=== PATIENT | female | born 1955 | race Caucasian/White ===

== ENCOUNTER 2020-07-01 10:54 | Outpatient (REF) | payer MEDICARE, MEDICAID, SELFPAY ==
--- NOTE | 2020-07-01 | MM_ITS ---
EXAMINATION: MM SCREENING DIGITAL BREAST TOMOSYNTHESIS, BILATERAL CLINICAL INFORMATION: Screening. Asymptomatic. The lifetime risk of breast cancer based on the Tyrer-Cuzick Model is 4%. COMPARISON: Mammography: 11/22/2018, 11/20/2017, 10/31/2016 TECHNIQUE: Digital breast tomosynthesis is performed in both the craniocaudal and mediolateral oblique views along with computer-aided detection (CAD). Synthesized 2D images are generated from the tomosynthesis. FINDINGS: The breasts are almost entirely fatty (ACR BI-RADS breast composition Category a). Background stromal densities are stable. There are 2 circumscribed nodules mid and posterior outer left breast likely intraparenchymal nodes. There is no interval mass or architectural abnormality or abnormal calcifications. No significant changes. IMPRESSION: No mammographic evidence of malignancy. ASSESSMENT: BI-RADS 2: Benign RECOMMENDATION: Routine annual mammography screening. This patient's information was entered into a reminder system with a target due date for their next mammogram.
== END 2020-07-01 10:55 | disposition home or self-care (01) ==
LOC: HO.MAMMO 10:54
PROVIDERS: PCP Registered Nurse; Referring Provider Internal Medicine; Visit Provider Registered Nurse
DX: Z12.31 Encounter for screening mammogram for malignant neoplasm of breast (principal); Z20.828 Contact with and (suspected) exposure to other viral communicable diseases
CPT/HCPCS: 36415; 77063; 77067; 78014; 87635

== ENCOUNTER 2020-08-13 09:51 | Outpatient (REF) | payer OTHER, MEDICAID, SELFPAY ==
--- NOTE | 2020-08-13 10:08 | XR_ITS ---
EXAMINATION: XR KNEE, BILATERAL XR KNEE, RIGHT CLINICAL INFORMATION: Pain in right knee COMPARISON: 04/23/2019 TECHNIQUE: AP standing view of both knees. Lateral and sunrise views of the right knee. FINDINGS: Right knee: No fracture or subluxation. Mild narrowing of the patellofemoral compartment. Small marginal osteophytes at the patellofemoral and lateral compartments. No joint effusion. The soft tissues are unremarkable. The appearance is similar to prior. Left knee: On this single view there is moderate medial compartment joint space narrowing with marginal osteophytes of the medial and lateral compartments, similar to prior. XR/XR knee RT 2V IMPRESSION: 1. Right knee: Mild patellofemoral compartment narrowing. Small osteophytes at the patellofemoral and lateral compartments. Similar to prior. 2. Left knee: Moderate medial compartment narrowing with medial and lateral compartment osteophytes, similar to prior.
--- NOTE | 2020-08-13 10:08 | XR_ITS ---
EXAMINATION: XR KNEE, BILATERAL XR KNEE, RIGHT CLINICAL INFORMATION: Pain in right knee COMPARISON: 04/23/2019 TECHNIQUE: AP standing view of both knees. Lateral and sunrise views of the right knee. FINDINGS: Right knee: No fracture or subluxation. Mild narrowing of the patellofemoral compartment. Small marginal osteophytes at the patellofemoral and lateral compartments. No joint effusion. The soft tissues are unremarkable. The appearance is similar to prior. Left knee: On this single view there is moderate medial compartment joint space narrowing with marginal osteophytes of the medial and lateral compartments, similar to prior. XR/XR knee standing BI IMPRESSION: 1. Right knee: Mild patellofemoral compartment narrowing. Small osteophytes at the patellofemoral and lateral compartments. Similar to prior. 2. Left knee: Moderate medial compartment narrowing with medial and lateral compartment osteophytes, similar to prior.
== END 2020-08-13 09:52 | disposition home or self-care (01) ==
LOC: HO.HOSX 09:51
PROVIDERS: Visit Provider Orthopaedic Surgery
DX: M17.11 Unilateral primary osteoarthritis, right knee (principal); M17.12 Unilateral primary osteoarthritis, left knee
CPT/HCPCS: 20610; 73560; 73565; 99212; J1040

== ENCOUNTER → 2020-08-31 10:50 | Outpatient (BNVA) | payer MEDICARE, MEDICAID, SELFPAY | PROVIDERS: Visit Provider Orthopaedic Surgery | DX: M25.562 Pain in left knee (principal); M25.561 Pain in right knee; M17.12 Unilateral primary osteoarthritis, left knee; R73.03 Prediabetes | CPT/HCPCS: 20610; 99212; J1040 ==

== ENCOUNTER 2020-09-14 10:25 | Outpatient (REF) | payer MEDICARE, MEDICAID, SELFPAY ==
--- NOTE | 2020-09-14 10:27 | XR_ITS ---
EXAMINATION: X-RAY BILATERAL SHOULDERS CLINICAL INFORMATION: Pain. COMPARISON: X-ray left shoulder 11/05/2019 TECHNIQUE: Bilateral shoulders each 3 views FINDINGS: RIGHT SHOULDER: Mild glenohumeral joint arthritis. Moderate AC joint arthritis. Subcortical cyst/sclerosis in the greater tuberosity. No fracture or dislocation. LEFT SHOULDER: Mild glenohumeral joint arthritis. Moderate AC joint arthritis. No acute fracture or dislocation. Old ossification in the inferior joint space, as well as ossification seen posterior to the glenoid on the axillary view, probable loose bodies. XR/XR shoulder LT min 2V IMPRESSION: RIGHT SHOULDER: Mild right glenohumeral and moderate AC joint arthritis. LEFT SHOULDER: Mild left glenohumeral and moderate AC joint arthritis. Probable loose bodies.
--- NOTE | 2020-09-14 10:27 | XR_ITS ---
EXAMINATION: X-RAY BILATERAL SHOULDERS CLINICAL INFORMATION: Pain. COMPARISON: X-ray left shoulder 11/05/2019 TECHNIQUE: Bilateral shoulders each 3 views FINDINGS: RIGHT SHOULDER: Mild glenohumeral joint arthritis. Moderate AC joint arthritis. Subcortical cyst/sclerosis in the greater tuberosity. No fracture or dislocation. LEFT SHOULDER: Mild glenohumeral joint arthritis. Moderate AC joint arthritis. No acute fracture or dislocation. Old ossification in the inferior joint space, as well as ossification seen posterior to the glenoid on the axillary view, probable loose bodies. XR/XR shoulder RT min 2V IMPRESSION: RIGHT SHOULDER: Mild right glenohumeral and moderate AC joint arthritis. LEFT SHOULDER: Mild left glenohumeral and moderate AC joint arthritis. Probable loose bodies.
== END 2020-09-14 10:26 | disposition home or self-care (01) ==
LOC: HO.HOSX 10:25
PROVIDERS: PCP Registered Nurse; Visit Provider Orthopaedic Surgery
DX: M75.41 Impingement syndrome of right shoulder (principal); M75.42 Impingement syndrome of left shoulder
CPT/HCPCS: 73030; 99212

== ENCOUNTER → 2020-10-06 13:24 | Outpatient (BNVA) | payer MEDICARE, MEDICAID, SELFPAY | PROVIDERS: PCP Registered Nurse; Visit Provider Orthopaedic Surgery | DX: M75.41 Impingement syndrome of right shoulder (principal); M75.42 Impingement syndrome of left shoulder | CPT/HCPCS: 20610; 99212; J1040 ==

== ENCOUNTER → 2020-11-16 13:04 | Outpatient (BNVA) | payer MEDICAID, SELFPAY | PROVIDERS: PCP Nurse Practitioner Family; Visit Provider Physician Assistant ==

== ENCOUNTER 2020-11-30 07:55 | Outpatient (REF) | payer MEDICARE, SELFPAY ==
--- NOTE | ~2020-11-30 | US_ITS ---
EXAMINATION: US ABDOMEN COMPLETE CLINICAL INFORMATION: Epigastric pain. COMPARISON: Previous CT of the abdomen and pelvis most recent August 2014 and MRI of the abdomen from 1999 TECHNIQUE: Real-time imaging of the abdominal viscera. FINDINGS: PANCREAS: The head and body the pancreas are normal. The tail is not well visualized due to bowel gas. ABDOMINAL AORTA: The proximal, mid, and distal segments are normal in caliber. INFERIOR VENA CAVA: Visualized portions are normal. LIVER: Normal. The liver is normal in size. The liver contour is normal. Parenchymal echogenicity is normal. No focal hepatic lesion. There is no intrahepatic biliary duct dilatation seen. GALLBLADDER: Surgically removed.. COMMON BILE DUCT: Normal in caliber measuring 0.9 cm in diameter. RIGHT KIDNEY: There is a peripheral echogenic area in the upper pole of the right kidney. When compared with CT or MRI this may represent a parenchymal junctional defect partial volume averaging with the perinephric fat. No hydronephrosis. No renal calculi . The kidney measures 10.9 cm in maximum dimension. LEFT KIDNEY: There are several echogenic densities suggestive of stones. The largest measures 5 mm in the mid to lower pole. There is a small 1 cm cyst in the lateral lower pole. No hydronephrosis. No renal calculi or focal parenchymal lesions. The kidney measures cm in maximum dimension. SPLEEN: Normal. The spleen measures 9.5 cm in maximum dimension. There is a 4.3 x 3.3 x 3.7 cm simple cyst adjacent to the inferior spleen. This is not seen on prior exams FREE FLUID: None. US/US abdomen complete IMPRESSION: New 4.3 x 3.3 x 3.7 cm cyst inferior to the spleen. This is not seen on prior exams, most recent abdominal pelvic CT August 2014. This could be better evaluated with CT or MRI. Left renal stones. Small left renal cyst. Limited visualization of the tail the pancreas.
[2020-11-30 09:14] LABS: MANUAL DIFF FLAG NO
[2020-11-30 09:18] LABS: Basophils Percent Auto 0.7 % (0-2); Eosinophils Absolute Auto 0.1 X10*3/uL (0.0-0.4); Eosinophils Percent Auto 2.2 % (0-4); Hemoglobin 12.6 g/dl (12.0-16.0); Imm Gran Abs Auto 0.01 X10*3/uL (0.00-0.03); Imm Gran Pct Auto 0.2 % (0.0-0.4); Lymphocytes Absolute Auto 1.5 X10*3/uL (1.2-4.9); Lymphocytes Percent Auto 25.8 % (20-40); Mean Corpuscular HGB Conc 33.2 g/dl (31.0-35.0); Mean Corpuscular Hemoglobin 29.8 pg (27.0-33.0); Mean Corpuscular Volume 89.8 fL (80-98); Mean Platelet Volume 11.5 fL (9.4-12.3); Monocytes Absolute Auto 0.7 X10*3/uL (0.1-1.2); Monocytes Percent Auto 11.5 % (2-11); Neutrophils Absolute Auto 3.5 X10*3/uL (2.0-8.3); Neutrophils Percent Auto 59.6 % (45-73); Platelet Count 151 X10*3/uL (160-400); Red Blood Count 4.23 X10*6/uL (4.20-5.50); Red Cell Distribution Width 15.2 % (11.0-16.0); White Blood Count 5.9 X10*3/uL (4.8-10.8)
[2020-11-30 09:45] LABS: Glucose Urine UA NEG (NEG); Leukocyte Esterase Urine TRACE (NEG); Nitrite Urine NEG (NEG); PH 7.5 (5.0-8.0); Urine Blood NEG (NEG); Urine Ketones NEG (NEG); Urine Protein NEG (NEG-TRACE)
[2020-11-30 09:47] LABS: Appearance Urine HAZY; Color Urine YELLOW
[2020-11-30 09:48] LABS: Alanine Aminotransferase 14 U/L (0-31); Alkaline Phosphatase 95 U/L (39-117); Anion Gap 10 (12-20); Aspartate Amino Transferase 17 U/L (5-31); Bilirubin Total 1.2 mg/dL (0.0-1.0); Blood Urea Nitrogen 11 mg/dL (9-16); Calcium 8.5 mg/dL (8.4-10.2); Carbon Dioxide 29 mmol/L (22-29); Chloride 107 mmol/L (96-108); Estimated Glomerular Filt Rate > 60; Glucose Random 95 mg/dL (60-115); Potassium 4.3 mmol/L (3.3-5.1); Sodium 142 mmol/L (135-145); Total Protein 6.5 g/dL (6.5-8.0)
[2020-11-30 09:53] LABS: Bacteria Urine 1+ /LPF; RBC Urine 0 /HPF (0); Squamous Epithelial Cell Urine 2+ /LPF
[2020-11-30 10:17] LABS: Thyroid Stimulating Hormone 0.76 uIU/mL (0.32-4.0)
== END 2020-11-30 07:56 | disposition home or self-care (01) ==
LOC: HO.US 07:55
PROVIDERS: PCP Registered Nurse; Visit Provider Physician Assistant
DX: R10.13 Epigastric pain (principal)
CPT/HCPCS: 36415; 76700; 80053; 81001; 84443; 85025

== ENCOUNTER 2020-12-30 07:52 | Emergency (ER) | payer MEDICARE, SELFPAY ==
--- NOTE | ~2020-12-30 | XR_ITS ---
EXAMINATION: XR ANKLE, RIGHT CLINICAL INFORMATION: Pain COMPARISON: None TECHNIQUE: AP, lateral, and mortise views of the right ankle. FINDINGS: No fracture or dislocation. The ankle mortise is congruent. Mild degenerative changes along the ankle mortise, particularly at the lateral aspect with osteophyte formation. Mild degenerative changes of the midfoot with osteophyte formation dorsally. Mild circumferential soft tissue swelling. No definite ankle joint effusion. Prominent heel spurs. XR/XR ankle RT min 3V IMPRESSION: Mild degenerative changes along the ankle mortise, greatest laterally. Heel spurs.
[2020-12-30 08:57] VITALS: BP 113/55; PULSE 64; RESP 16; TEMP 36.6; O2SAT 98; BMI 29.4
--- NOTE | 2020-12-30 09:37 | ED_ITS ---
HPI - Extremity Injury (Lower) General Chief Complaint: Extremity Injury, Lower Stated Complaint: ankle pain Time Seen by Provider: 12/30/20 09:37 History of Present Illness HPI Narrative: Patient with history of right ankle arthritis complains of pain being worse over past several days without any new injury no fever no chills no redness to the skin no skin rash Related Data Home Medications Medication Instructions Recorded Confirmed calcium carbonate 200 mg calcium 200 mg PO BID 08/13/20 11/16/20 (500 mg) chewable tablet cholecalciferol (vitamin D3) 10 10 mcg PO .COMPLEX 08/13/20 11/16/20 mcg (400 unit) capsule naproxen sodium 220 mg capsule 220 mg PO Q8H 08/13/20 11/16/20 Previous Rx's Medication Instructions Recorded famotidine 40 mg tablet 40 mg PO DAILY #30 tab 11/16/20 lidocaine 1 patch TOPICAL DAILY #15 ea 12/30/20 Allergies Allergy/AdvReac Type Severity Reaction Status Date / Time erythromycin base Allergy Intermediate GI DISTRESS Verified 11/16/20 13:05 [Erythromycin Base] Penicillins Allergy Intermediate RASH Verified 11/16/20 13:05 Review of Systems Review of Systems: Positive for right ankle pain negatives are no fever no chills no numbness no weakness no dizziness no other joint pains no skin rash PMFSH Past Medical History Source: nursing notes reviewed Medical History (Updated 12/31/20 @ 00:01 by Jennifer Edward) Acid reflux Epigastric pain Osteoarthritis of left knee Uterine polyp Surgical History History of cholecystectomy Hx of tubal ligation Family History Family History (Updated 11/16/20 @ 13:08 by ZHANG Burnett) Mother Diabetes Sister Diabetes Brother Diabetes Social History Social History (Updated 11/16/20 @ 13:08 by ZHANG Burnett) Household Members: Spouse Alcohol intake: current Alcohol intake frequency: does not drink Smoking Status: Never smoker Smoked in Last 30 Days: No Use of substances other than those prescribed or required for medical reasons: No Advance Directives: Yes Advance Directives Information Provided: No Advance Directives on File: No Current occupational status: unemployed Current occupation: Right Handed Physical Exam Vital Signs: Vital Signs: Last Vital Signs Temp 97.9 F 12/30/20 08:57 Pulse 64 12/30/20 08:57 Resp 16 12/30/20 08:57 BP 113/55 L 12/30/20 08:57 Pulse Ox 98 12/30/20 08:57 Body Mass Index 29.4 General appearance is no acute distress, comp and cooperative and O x3 Head is normocephalic atraumatic Neck is supple Respiratory no distress Extremities there is some tenderness around the right ankle both medial and lateral, skin is normal color not red and warm there is full range of motion, there is a mild limp with weight-bearing and neurovascular intact distal Skin no rash Neuro no focal motor or sensory deficits Course Course Course Narrative: X-ray showed some evidence of arthritis in the right ankle, no signs of any infection no signs of a septic joint and patient is discharged to follow-up with orthopedist Discharge Plan Discharge Clinical Impression: Arthralgia of ankle, right Patient Disposition: Home, Self-Care Additional Instructions: Follow with orthopedist and plaster applicator for further evaluation Return any concerns Prescriptions: New lidocaine 5 % adhesive patch,medicated 1 patch topical DAILY Qty: 15 RF: 0 No Action famotidine 40 mg tablet 40 mg PO DAILY Qty: 30 RF: 5 naproxen sodium [Aleve] 220 mg capsule 220 mg PO Q8H RF: 0 calcium carbonate [Tums] 200 mg calcium (500 mg) tablet,chewable 200 mg PO BID RF: 0 cholecalciferol (vitamin D3) 10 mcg (400 unit) capsule 10 mcg PO .COMPLEX RF: 0 Referrals: Cristóbal Meneses MD [Physician] - 2 days (Right ankle arthritis pain) Feliciano Jiménez [Physician] - 2 days (Right ankle arthritis pain) Interventions: ED Discharge Assessment Last Done: 12/30/20 10:57 Discharge Date/Time: 12/30/20 10:57
== END 2020-12-30 10:57 | disposition home or self-care (01) ==
PROVIDERS: Emergency Provider Emergency Medicine Emergency Medical Services; PCP Registered Nurse
DX: M19.071 Primary osteoarthritis, right ankle and foot (principal); M25.571 Pain in right ankle and joints of right foot
CPT/HCPCS: 73610; 99283

== ENCOUNTER 2021-07-11 15:18 | Emergency (ER) | payer MEDICARE, SELFPAY ==
--- NOTE | 2021-07-11 15:32 | ECG_ITS ---
Test Reason : PALPITATIONS Blood Pressure : / mmHG Vent. Rate : 067 BPM Atrial Rate : 067 BPM P-R Int : 156 ms QRS Dur : 078 ms QT Int : 406 ms P-R-T Axes : 056 019 034 degrees QTc Int : 429 ms Normal sinus rhythm RSR' or QR pattern in V1 suggests right ventricular conduction delay Nonspecific T wave abnormality Borderline ECG When compared with ECG of 26-JAN-2016 07:55, Nonspecific T wave abnormality is new Referred By: Genaro Gonzalez Electronically Signed By:TIAGO RAE MD
[2021-07-11 15:46] VITALS: BP 120/33; PULSE 65; RESP 16; TEMP 36.8; O2SAT 98
--- NOTE | 2021-07-11 19:02 | PC.NURSE ---
pt wants to leave, pt states her palp are not as bad as in the past. pt states she has palp all the time and will be seen tomorrow. pt encouraged to stay and she still wanted to leave. skin pink warm and dry, talking in full sentences, steady gait.
== END 2021-07-11 19:07 | disposition left against medical advice (07) ==
PROVIDERS: Emergency Provider Emergency Medicine
DX: R00.2 Palpitations (principal)
CPT/HCPCS: 93005; 99282

== ENCOUNTER 2021-09-29 19:02 | Outpatient (REF) | payer MEDICARE, SELFPAY ==
[2021-09-29 20:04] LABS: Influenza A PCR NEGATIVE (Negative); Influenza B PCR NEGATIVE (Negative); Resp Syncy Virus RNA Qual PCR NEGATIVE (Negative); SARS COV2 PCR INHOUSE POSITIVE (Negative)
== END 2021-09-29 19:03 | disposition home or self-care (01) ==
LOC: HO.LNP 19:02
PROVIDERS: Visit Provider Physician Assistant Medical
DX: Z20.822 Contact with and (suspected) exposure to COVID-19 (principal); J06.9 Acute upper respiratory infection, unspecified
CPT/HCPCS: 0241U

== ENCOUNTER 2021-10-19 10:50 | Outpatient (REF) | payer MEDICARE, SELFPAY ==
[2021-10-19 11:25] LABS: MANUAL DIFF FLAG NO
[2021-10-19 11:35] LABS: Basophils Percent Auto 0.4 % (0-2); Eosinophils Absolute Auto 0.1 X10*3/uL (0.0-0.4); Eosinophils Percent Auto 1.2 % (0-4); Hematocrit 33.2 % (37.0-47.0); Hemoglobin 10.7 g/dl (12.0-16.0); Imm Gran Abs Auto 0.01 X10*3/uL (0.00-0.03); Imm Gran Pct Auto 0.1 % (0.0-0.4); Lymphocytes Absolute Auto 1.7 X10*3/uL (1.2-4.9); Mean Corpuscular HGB Conc 32.2 g/dl (31.0-35.0); Mean Corpuscular Hemoglobin 29.5 pg (27.0-33.0); Mean Corpuscular Volume 91.5 fL (80.0-98.0); Mean Platelet Volume 11.8 fL (9.4-12.3); Monocytes Absolute Auto 0.9 X10*3/uL (0.1-1.2); Monocytes Percent Auto 12.3 % (2-11); Neutrophils Absolute Auto 4.7 x10*3/uL (2.0-8.3); Platelet Count 193 X10*3/uL (160-400); Red Blood Count 3.63 X10*6/uL (4.20-5.50); Red Cell Distribution Width 14.7 % (11.0-16.0); White Blood Count 7.4 X10*3/uL (4.8-10.8)
[2021-10-19 12:00] LABS: Alanine Aminotransferase 26 U/L (0-31); Albumin Level 4.1 g/dL (3.5-5.0); Alkaline Phosphatase 204 U/L (39-117); Aspartate Amino Transferase 31 U/L (5-31); Bilirubin Direct 0.7 mg/dL (0.0-0.5); Bilirubin Total 1.6 mg/dL (0.0-1.0); Lipase 19 U/L (8-78); Total Protein 7.6 g/dL (6.5-8.0)
[2021-10-19 12:23] LABS: Thyroid Stimulating Hormone 0.93 uIU/mL (0.32-4.0)
== END 2021-10-19 10:51 | disposition home or self-care (01) ==
LOC: HO.LAB 10:50
PROVIDERS: PCP Registered Nurse; Visit Provider Internal Medicine Gastroenterology
DX: R09.89 Other specified symptoms and signs involving the circulatory and respiratory systems (principal); R52 Pain, unspecified
CPT/HCPCS: 36415; 80076; 83690; 84443; 85025

== ENCOUNTER 2021-11-01 11:02 | Outpatient (REF) | payer MEDICARE, SELFPAY ==
--- NOTE | ~2021-11-01 | MM_ITS ---
EXAMINATION: MM SCREENING DIGITAL BREAST TOMOSYNTHESIS, BILATERAL CLINICAL INFORMATION: Screening. Asymptomatic. The lifetime risk of breast cancer based on the Tyrer-Cuzick Model is 3%. COMPARISON: Mammography: 07/01/2020, 11/22/2018, 11/20/2017 TECHNIQUE: Digital breast tomosynthesis is performed in both the craniocaudal and mediolateral oblique views along with computer-aided detection (CAD). Synthesized 2D images are generated from the tomosynthesis. Additional left MLO view is provided. FINDINGS: The breasts are almost entirely fatty (ACR BI-RADS breast composition Category a). There are no significant masses, abnormal calcifications, or other abnormalities. Background stromal and fibroglandular densities are similar to prior studies. There are 2 intramammary node again suggested posterior upper outer left breast. Tightly grouped round/reason calcifications again seen posterior central 1:00 left breast similar to prior exam. The axilla and skin contours are unremarkable. MM/MM tomosynthesis screening BI IMPRESSION: There are no significant changes from prior study. ASSESSMENT: BI-RADS 2: Benign RECOMMENDATION: Routine annual mammography screening. This patient's information was entered into a reminder system with a target due date for their next mammogram.
== END 2021-11-01 11:03 | disposition home or self-care (01) ==
LOC: HO.MAMMO 11:02
PROVIDERS: Visit Provider Registered Nurse
DX: Z12.31 Encounter for screening mammogram for malignant neoplasm of breast (principal)
CPT/HCPCS: 77063; 77067

== ENCOUNTER 2021-11-01 11:53 | Outpatient (REF) | payer MEDICARE, SELFPAY ==
[2021-11-01 13:52] LABS: OBS Int Ctl Valid YES; OBS1 NEGATIVE (NEGATIVE); OBS2 NEGATIVE (NEGATIVE); OBS3 NEGATIVE (NEGATIVE)
[2021-11-01 14:11] LABS: Alanine Aminotransferase 22 U/L (0-31); Albumin Level 3.8 g/dL (3.5-5.0); Alkaline Phosphatase 202 U/L (39-117); Aspartate Amino Transferase 29 U/L (5-31); Bilirubin Direct 0.6 mg/dL (0.0-0.5); Bilirubin Total 1.5 mg/dL (0.0-1.0); Iron 43 mcg/dL (30-160); Percent Iron Saturation 18 % (15-50); Total Iron Binding Capacity 242 mcg/dL (228-428); Total Protein 6.9 g/dL (6.5-8.0); Unsaturated Iron Binding 199 ug/dL
[2021-11-01 14:32] LABS: Ferritin 602 ng/mL (10-250)
[2021-11-01 14:36] LABS: Folate 8.2 ng/mL (> or = 4.0); Vitamin B12 1408 pg/mL (200-900)
== END 2021-11-01 11:54 | disposition home or self-care (01) ==
LOC: HO.LAB 11:53
PROVIDERS: PCP Registered Nurse; Visit Provider Internal Medicine Gastroenterology
DX: D64.9 Anemia, unspecified (principal); R79.89 Other specified abnormal findings of blood chemistry
CPT/HCPCS: 36415; 80076; 82270; 82607; 82728; 82746; 83540

== ENCOUNTER 2021-11-18 10:08 | Outpatient (REF) | payer MEDICARE, SELFPAY ==
--- NOTE | ~2021-11-18 | FL_ITS ---
EXAMINATION: XR FLUOROSCOPY UPPER GI WITH AIR CLINICAL INFORMATION: Epigastric pain COMPARISON: July 18, 2017 TECHNIQUE: Air-contrast upper GI examination. FINDINGS: There is normal apposition of the vocal cords while saying he. There is normal elevation of the soft palate while saying candy. Patient swallowed thin and thick barium without difficulty. Half-inch diameter barium tablet passed without difficulty. There is no evidence of nasopharyngeal reflux or tracheal aspiration. The stomach demonstrated normal distensibility without persistent stricture. There is normal esophageal motility. Mucosal pattern appears unremarkable. There is mild gastroesophageal reflux spontaneously within the distal half of the esophagus which cleared rapidly. There is a small hiatal hernia present. Within the distal antrum of the stomach there is some diminished distensibility with prominent folds consistent with gastritis. There was no delay in gastric emptying. The duodenal bulb and sweep appeared unremarkable. FLUOROSCOPY TIME: 2.8 minutes DOSE AREA PRODUCT: 16.346 Gy-cm2 (thomas-centimeter squared) FL/FL upper GI w air IMPRESSION: Small hiatal hernia with gastroesophageal reflux which clears rapidly within the distal half of the esophagus.. Findings consistent with antral gastritis.
== END 2021-11-18 10:09 | disposition home or self-care (01) ==
LOC: HO.XRAY 10:08
PROVIDERS: PCP Registered Nurse; Visit Provider Internal Medicine Gastroenterology
DX: R10.13 Epigastric pain (principal)
CPT/HCPCS: 74246

== ENCOUNTER 2021-11-23 08:50 | Outpatient (REF) | payer MEDICARE, SELFPAY ==
--- NOTE | ~2021-11-23 | US_ITS ---
EXAMINATION: US ABDOMEN COMPLETE CLINICAL INFORMATION: Anemia. Elevated LFTs. COMPARISON: Ultrasound abdomen complete 11/30/2020. CT abdomen and pelvis 09/04/2014. TECHNIQUE: Real-time imaging of the abdominal viscera. FINDINGS: PANCREAS: The pancreas is normal-appearing. There is a lymph node seen superior to the pancreas that measures 1.1 x 0.7 x 1.4 cm. ABDOMINAL AORTA: The proximal, mid, and distal segments are normal in caliber. INFERIOR VENA CAVA: Visualized portions are normal. LIVER: The liver is normal in size and contour. Liver echotexture appears slightly heterogeneous. There is question of a focal liver lesion largest measuring 3 cm in the right lobe. Intrahepatic bile ducts appear prominent and echogenic. GALLBLADDER: Surgically absent. COMMON BILE DUCT: Normal in caliber measuring 1.0 cm in diameter. RIGHT KIDNEY: There is a 7 x 9 mm echogenic area in the upper to midpole questionable for a junctional parenchymal defect versus angiomyolipoma. No hydronephrosis. No renal calculi or focal parenchymal lesions. The kidney measures 10.8 cm in maximum dimension. LEFT KIDNEY: There is a 2 cm slightly complex cyst with thin septation. No hydronephrosis or renal calculi. The kidney measures 11.1 cm in maximum dimension. SPLEEN: Normal. The spleen measures 10.0 cm in maximum dimension. There is a new large cyst medial to the spleen and superior to the left kidney that measures 5.5 x 5.4 x 8.3 cm. This is new from previous CT and ultrasound in origin is uncertain. FREE FLUID: None. US/US abdomen complete IMPRESSION: Heterogeneous liver echotexture with question new focal liver lesions. The intrahepatic bile ducts also appear prominent. New 5 x 5 x 8 cm cyst in the left upper quadrant adjacent to the spleen and left kidney.. Pancreatic lymph node. Follow-up CT scan recommended. Question junctional parenchymal defect versus angiomyolipoma in the right kidney. 2 cm slightly complex left renal cyst. Findings will be communicated by the [facility] [employer].
== END 2021-11-23 08:51 | disposition home or self-care (01) ==
LOC: HO.US 08:50
PROVIDERS: PCP Registered Nurse; Visit Provider Internal Medicine Gastroenterology
DX: D64.9 Anemia, unspecified (principal); R79.89 Other specified abnormal findings of blood chemistry
CPT/HCPCS: 76700

== ENCOUNTER 2021-11-25 14:09 | Emergency (ER) | payer MEDICARE, SELFPAY ==
--- NOTE | ~2021-11-25 | XR_ITS ---
EXAMINATION: XR CHEST CLINICAL INFORMATION: Rib pain COMPARISON: Previous chest x-ray December 2013 TECHNIQUE: 2 views of the chest were obtained. FINDINGS: The cardiac and mediastinal contours are normal. The lungs are clear. There is no pleural effusion or pneumothorax. There is curvature of the thoracic spine and degenerative change. No rib fracture is appreciated. XR/XR chest 2V IMPRESSION: No evidence for acute disease in the chest.
[2021-11-25 14:25] VITALS: BP 116/30; PULSE 72; RESP 18; TEMP 36.7; O2SAT 96; BMI 26.2
--- NOTE | 2021-11-25 14:48 | ED.GENADULT ---
HPI - General Adult General Chief complaint: General Medical Stated complaint: r rib pain Time Seen by Provider: 11/25/21 14:48 Source: patient Mode of arrival: ambulatory Limitations: no limitations History of Present Illness HPI narrative: 66 y/o female presents to the ER with right sided rib pain that started on 11/23 when she was having a RUQ abdominal U/S done. She reports pain when the probe went underneath the ribcage. When at home after the procedure patient reports ongoing pain in the area, worse with movement and palpation. She reports waking up at 03:00 today with worsening pain in her right lower ribs. She reports the pain is worse she takes a deep breath and touches the area. She denies any history of falls or trauma. She is not on anticoagulation. She denies any nausea, vomiting, diarrhea, fever, chills. MD complaint: Right lower rib pain Onset (ago): day(s) (2) Location: chest and abdomen Radiation: non-radiation Severity: moderate Severity scale (1-10): 7 Quality: sharp Pain Consistency: intermittent Relieving factors: immobilization Exacerbating factors: movement Associated symptoms: denies other symptoms Treatments prior to arrival: none Related Data Home Medications Medication Instructions Recorded Confirmed calcium carbonate 200 mg calcium 200 mg PO BID 08/13/20 11/16/20 (500 mg) chewable tablet (Tums) cholecalciferol (vitamin D3) 10 10 mcg PO .COMPLEX 08/13/20 11/16/20 mcg (400 unit) capsule naproxen sodium 220 mg capsule 220 mg PO Q8H 08/13/20 11/16/20 (Aleve) Previous Rx's Medication Instructions Recorded famotidine 40 mg tablet 40 mg PO DAILY #30 tab 11/16/20 lidocaine 5 % topical patch 1 patch TOPICAL DAILY #15 ea 12/30/20 lidocaine 5 % topical patch 1 patch TOPICAL DAILY #15 ea 11/25/21 Allergies Allergy/AdvReac Type Severity Reaction Status Date / Time erythromycin base Allergy Intermediate GI DISTRESS Verified 09/29/21 15:51 [Erythromycin Base] Penicillins Allergy Intermediate RASH Verified 09/29/21 15:51 Review of Systems Review of Systems: Constitutional: No Fever, No Chills ENT/Mouth: No sore throat, No Rhinorrhea, No Swallowing Difficulty Cardiovascular: + Chest Pain (right lower rib), No SOB Respiratory: No Cough, No Sputum Gastrointestinal: No Nausea, No Vomiting, No Diarrhea, + abdominal Pain (RUQ), No Hematochezia, No Melena Genitourinary: No Dysuria, No Urinary Frequency, No Hematuria Musculoskeletal: No joint pain, + Myalgias Skin: No Skin Lesions, No rash Neuro: No Weakness, No Numbness Psych: + Anxiety/Panic Heme/Lymph: No Bruising, No Lymphadenopathy PMFSH Past Medical History Medical History (Updated 11/25/21 @ 15:06 by TIM Keating) Acid reflux Epigastric pain Osteoarthritis of left knee Uterine polyp Surgical History History of cholecystectomy Hx of tubal ligation Family History Family History (Updated 11/16/20 @ 13:08 by ZHANG Burnett) Mother Diabetes Sister Diabetes Brother Diabetes Social History Social History (Updated 11/16/20 @ 13:08 by ZHANG Burnett) Household Members: Spouse Alcohol intake: current Alcohol intake frequency: does not drink Patient Tobacco Use Status: Never used Tobacco Advance Directives: No Advance Directives Information Provided: No Current occupational status: unemployed Current occupation: Right Handed Physical Exam ED Vital Signs: Vital Signs - 24 hr 11/25/21 14:25 Temperature 98.1 F Pulse Rate 72 Respiratory Rate 18 Blood Pressure 116/30 L Pulse Oximetry 96 BMI result Body Mass Index 26.2 Appearance: Alert. Oriented X3. Pale. No acute distress. HEENT: normal external inspection Neck: Normal inspection. Neck supple. CVS: Normal heart rate and rhythm. Pulses normal. Respiratory: No respiratory distress. Breath sounds normal. Right anterior lower rib tenderness with mild swelling in the area. No ecchymosis Abdomen: Soft with mild RUQ tenderness adjacent to lower ribs. +BS x4 Skin: Skin warm and dry. Normal skin color. Normal skin turgor. No rashes. Extremities: normal inspection x4 Neuro: Oriented X 3. Grossly normal, nonfocal Course Course Course Narrative: 58-year-old female presents to the ER for evaluation of right lower rib pain that started 2 days ago when she was having an abdominal ultrasound performed. She reports the pain has been intermittent since then before constant since 03:00 this morning. It is worse with palpation and movement. She also reports worsening pain when taking a deep breath. No trauma. No GI symptoms. X-rays of the chest did not show any abnormalities of the ribs. It is possible that she has a rib contusion due to the technique of the ultrasound being performed. Her pain started the exact time the procedure was being done. Management is supportive care and outpatient follow-up. She reported relief with Aleve and states the only medication that she can tolerate for pain. She is also interested in topical treatments, will DC with Rx for Lidoderm patches. Stable for DC home. Instructed to return to the ER if symptoms worsen. Discharge Plan Discharge Clinical Impression: Contusion of rib on right side Patient Disposition: Home, Self-Care Instructions: Rib Contusion (ED) Additional Instructions: Your x-ray today was normal. Your pain is most likely due to a bruised rib also known as a rib contusion. Recommend continuing Aleve as needed. Use the prescribed pain patches as needed. No strenuous activity or heavy lifting. Follow up with your doctor next week. If you develop new or worsening symptoms call 911 or come back to the ER for further evaluation. Prescriptions: New lidocaine 5 % adhesive patch,medicated 1 patch topical DAILY Qty: 15 0RF Rx Instructions: leave on most painful area for up to 12 hrs No Action lidocaine 5 % adhesive patch,medicated 1 patch topical DAILY Qty: 15 0RF Rx Instructions: leave on most painful area for up to 12 hrs famotidine 40 mg tablet 40 mg PO DAILY Qty: 30 5RF naproxen sodium [Aleve] 220 mg capsule 220 mg PO Q8H 0RF calcium carbonate [Tums] 200 mg calcium (500 mg) tablet,chewable 200 mg PO BID 0RF cholecalciferol (vitamin D3) 10 mcg (400 unit) capsule 10 mcg PO .COMPLEX 0RF Rx Instructions: 10 mcg PO WEEKLY;
[2021-11-25] MEDS: Lidocaine 4 % Patch ADH..PATCH 1 PATCH TRANSDERMA (15:11)
[2021-11-25] MEDS: Ketorolac Tromethamine 30 MG/ML VIAL IM (15:12)
== END 2021-11-25 15:19 | disposition home or self-care (01) ==
LOC: HO.ED 15:06
PROVIDERS: Emergency Provider Emergency Medicine; PCP Registered Nurse
DX: S20.211A Contusion of right front wall of thorax, initial encounter (principal); R07.81 Pleurodynia; X58.XXXA Exposure to other specified factors, initial encounter; Y93.9 Activity, unspecified; Y92.9 Unspecified place or not applicable; Y99.9 Unspecified external cause status; Z79.899 Other long term (current) drug therapy
CPT/HCPCS: 71046; 96372; 99283; 99284; J1885

== ENCOUNTER 2021-11-29 11:25 | Outpatient (REF) | payer MEDICARE, SELFPAY ==
[2021-11-29 13:14] LABS: Alanine Aminotransferase 14 U/L (0-31); Albumin Level 3.6 g/dL (3.5-5.0); Alkaline Phosphatase 198 U/L (39-117); Aspartate Amino Transferase 26 U/L (5-31); Bilirubin Direct 0.6 mg/dL (0.0-0.5); Bilirubin Total 1.4 mg/dL (0.0-1.0); Blood Urea Nitrogen 11 mg/dL (9-16); Estimated Glomerular Filt Rate > 60; Gamma Glutamyl Transpeptidase 134 U/L (7-33); Total Protein 6.7 g/dL (6.5-8.0)
[2021-11-30 03:57] LABS: HBc Num1 0.11 S/CO (0.00-0.79); Hepatitis A Antibody IgM 0.23 Index (0-0.79); Hepatitis B Core Antibody Nonreactive (Nonreactive); ~HepC Num1 0.12 S/CO (0.00-0.79); ~Hepatitis A Antibody IgM Nonreactive (Nonreactive); ~Hepatitis B Surface Antibody REACTIVE (Nonreactive); ~Hepatitis C Antibody Nonreactive (Nonreactive)
[2021-11-30 04:10] LABS: HBsAGNum1 0.21 S/CO (0.00-0.99); Hepatitis B Surface Antigen Negative (Negative)
[2021-11-30 19:47] LABS: Alpha 1 Anti-trypsin 283 mg/dL (83-199); Ceruloplasmin 39 mg/dL (18-53)
[2021-11-30 23:12] LABS: Anti Nuclear Antibody Screen POSITIVE (NEGATIVE)
[2021-12-02 00:17] LABS: Smooth Muscle Antibody <20 U (<20)
[2021-12-03 14:56] LABS: Mitochondrial Antibodies POSITIVE (NEGATIVE)
== END 2021-11-29 11:26 | disposition home or self-care (01) ==
LOC: HO.LAB 11:25
PROVIDERS: PCP Registered Nurse; Visit Provider Internal Medicine Gastroenterology
DX: R10.13 Epigastric pain (principal); R79.89 Other specified abnormal findings of blood chemistry; R93.5 Abnormal findings on diagnostic imaging of other abdominal regions, including retroperitoneum
CPT/HCPCS: 36415; 80076; 82103; 82390; 82565; 82977; 84520; 86015; 86038; 86039; 86255; 86256; 86704; 86706; 86709; 86803; 87340

== ENCOUNTER 2021-12-12 09:57 | Outpatient (REF) | payer MEDICARE, SELFPAY ==
--- NOTE | ~2021-12-12 | CT_ITS ---
EXAMINATION: CT ABDOMEN AND PELVIS WITH CONTRAST CLINICAL INFORMATION: Epigastric pain. COMPARISON: Previous abdominal ultrasound November 2021 TECHNIQUE: Multidetector volumetric images were obtained from the superior aspect of the liver through the pubic symphysis following administration 85 mL of Omnipaque 350 intravenous contrast. Sagittal and coronal reformatted images were obtained on the technologist's workstation. Oral contrast: Yes This CT examination was performed using dose optimization techniques as appropriate, variously including the following: *Automated exposure control *Adjustment of mA and/or kV according to patient size (this includes techniques or standardized protocols for targeted exams where dose is matched to indication/reason for exam; i.e. extremities or head) *Use of iterative reconstruction technique DLP: 522 mGy-cm FINDINGS: LUNG BASES: The visualized lung bases are unremarkable. LIVER, GALLBLADDER, AND BILIARY TREE: There are innumerable low-attenuation liver lesions suggestive of metastatic disease. Largest lesion is in the anterior segment of the right lobe and medial segment of the left lobe. Is uncertain whether this represents 1 lesion or conglomerate lesions. This measures 6 x 8.5 cm in transverse and AP dimension. Some lesions appear cystic. Liver slightly enlarged. The liver contour and attenuation is normal. There is no biliary duct dilatation. The gallbladder is not seen and has presumably been removed. PANCREAS: There is a low-attenuation lesion in the tail of the pancreas that measures 3.5 x 5.3 cm and is concerning for neoplasm. Superior to this is a more appearing lesion extending to the splenic hilum and under the left hemidiaphragm measuring 6 cm. This likely corresponds to findings seen on ultrasound. SPLEEN: Unremarkable. ADRENAL GLANDS: Unremarkable. KIDNEYS AND URETERS: There is a 1.5 x 2.5 cm cyst in the lower pole of the left kidney. The kidneys are otherwise unremarkable. No imaging follow-up is needed. BLADDER: Not optimally distended. GASTROINTESTINAL TRACT: The small and large bowel are unremarkable. The appendix is is not seen. The stomach is unremarkable. ABDOMINAL WALL: No significant hernia is appreciated. LYMPH NODES: There are small periportal and peripancreatic lymph nodes. No ascites. 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 There are varices. PELVIC VISCERA: Unremarkable. OSSEOUS STRUCTURES: There are degenerative changes of the spine and hip joints. CT/CT abdomen pelvis w con IMPRESSION: 3.5 x 5.3 cm low-attenuation lesion in the tail of the pancreas and adjacent more superior 6 cm cystic lesion. Innumerable low-attenuation liver lesions suggestive of metastatic disease. Constellation of findings is most suggestive of a pancreatic neoplasm metastatic to the liver. Liver lesions would be amenable to biopsy. Occluded splenic vein. Small peripancreatic and periportal lymph nodes. Small left renal cyst. Fleischner guidelines were followed. Findings will be communicated by the [place] work flow director of product management.
[2021-12-12] MEDS: iohexoL 350 MG/ML 100 ML INFUS..BTL 85 ML IV (10:30)
== END 2021-12-12 09:58 | disposition home or self-care (01) ==
LOC: HO.CT 09:57
PROVIDERS: PCP Registered Nurse; Visit Provider Internal Medicine Gastroenterology
DX: R10.13 Epigastric pain (principal); N28.1 Cyst of kidney, acquired
CPT/HCPCS: 74177; Q9967

== ENCOUNTER 2021-12-13 09:53 | Outpatient (REF) | payer MEDICARE, SELFPAY ==
[2021-12-13 10:42] LABS: Hematocrit 25.7 % (37.0-47.0); Mean Corpuscular HGB Conc 31.1 g/dl (31.0-35.0); Mean Corpuscular Hemoglobin 29.1 pg (27.0-33.0); Mean Corpuscular Volume 93.5 fL (80.0-98.0); Mean Platelet Volume 12.2 fL (9.4-12.3); Platelet Count 248 X10*3/uL (160-400); Red Blood Count 2.75 X10*6/uL (4.20-5.50); Red Cell Distribution Width 15.9 % (11.0-16.0); White Blood Count 9.9 X10*3/uL (4.8-10.8)
[2021-12-13 10:50] LABS: Partial Thromboplastin Time 32.3 SEC (24.1-38.0)
[2021-12-13 11:23] LABS: Alanine Aminotransferase 20 U/L (0-31); Albumin Level 3.8 g/dL (3.5-5.0); Alkaline Phosphatase 217 U/L (39-117); Aspartate Amino Transferase 29 U/L (5-31); Bilirubin Direct 0.6 mg/dL (0.0-0.5); Bilirubin Total 1.5 mg/dL (0.0-1.0); Lipase 33 U/L (8-78); Total Protein 7.2 g/dL (6.5-8.0)
[2021-12-13 15:44] LABS: INTERNATIONAL NORM RATIO 1.2 (0.9-1.1); Prothrombin Time 14.1 SEC (9.9-13.0)
== END 2021-12-13 09:54 | disposition home or self-care (01) ==
LOC: HO.LAB 09:53
PROVIDERS: PCP Registered Nurse; Visit Provider Internal Medicine Gastroenterology
DX: R93.2 Abnormal findings on diagnostic imaging of liver and biliary tract (principal)
CPT/HCPCS: 36415; 80076; 83690; 85027; 85610; 85730; 86301

== ENCOUNTER 2021-12-28 17:11 | Inpatient (IN) | payer MEDICARE, SELFPAY ==
--- NOTE | ~2021-12-28 | US_ITS ---
EXAMINATION: ULTRASOUND-GUIDED LIVER BIOPSY CLINICAL INFORMATION: Liver lesions. Pancreatic mass. COMPARISON: Previous CT of the abdomen and pelvis most recent 12/28/2021 TECHNIQUE: Procedure and risks and benefits including bleeding and infection were discussed with the patient and informed consent was obtained. Patient was positioned in the slight left decubitus position. Right upper quadrant was prepped and draped in the usual sterile fashion. The skin and soft tissues were anesthetized with 1% lidocaine plain. Using ultrasound guidance and a coaxial system, access to the heterogeneous mass in the right lobe was obtained. 4 20-gauge specimens were obtained. There is no complication. The patient received Versed 1 mg and fentanyl 50 mcg intravenously during the procedure. Total sedation time was 12 minutes. FINDINGS: There is a 10 cm heterogeneous lesion in the right lobe of the liver that was targeted for biopsy. US/US biopsy liver IMPRESSION: Ultrasound-guided liver biopsy
--- NOTE | ~2021-12-28 | CT_ITS ---
EXAMINATION: CT ABDOMEN AND PELVIS WITH CONTRAST CLINICAL INFORMATION: Metastatic cancer. COMPARISON: CT abdomen and pelvis 12/12/2021. TECHNIQUE: Multidetector volumetric images were obtained from the superior aspect of the liver through the pubic symphysis following administration 85 mL of Omnipaque 350 intravenous contrast. Sagittal and coronal reformatted images were obtained on the technologist's workstation. Oral contrast: No This CT examination was performed using dose optimization techniques as appropriate, variously including the following: *Automated exposure control *Adjustment of mA and/or kV according to patient size (this includes techniques or standardized protocols for targeted exams where dose is matched to indication/reason for exam; i.e. extremities or head) *Use of iterative reconstruction technique DLP: 717 mGy-cm FINDINGS: LUNG BASES: The lung bases are clear. The heart size is normal. LIVER, GALLBLADDER, AND BILIARY TREE: The liver is borderline enlarged in size, normal shape, and attenuation. There are multiple low-attenuation liver lesions in the right and left hepatic lobe suggestive of metastatic disease. No intrahepatic ductal dilatation seen. The gallbladder is not definitely visualized. PANCREAS: There is a large low-attenuation lesion arising from the tail of pancreas and measuring 6.3 x 3.3 cm in axial image 30/3. There is a second lesion extending superiorly from the tail of pancreas and measures 6.8 x 7.8 x 4.8 cm on axial image 24/3 and sagittal image 36/6. SPLEEN: Unremarkable. ADRENAL GLANDS: Unremarkable. KIDNEYS AND URETERS: The kidneys are normal in size, shape, and attenuation. No hydronephrosis, hydroureter, or calculi seen. No perinephric stranding. There is a partially exophytic cyst midpole left kidney measuring 2.4 cm. BLADDER: Unremarkable. GASTROINTESTINAL TRACT: There is scattered stool and gas seen throughout the colon without any significant distention. The stomach is nondistended. The small bowel loops are normal caliber. Appendix is not seen with certainty. ABDOMINAL WALL: No significant hernia is appreciated. LYMPH NODES: There are small periportal and peripancreatic lymph nodes. VASCULAR: Unremarkable. PELVIC VISCERA: The uterus is anteverted and appears unremarkable. There is no adnexal mass, abnormal lymph nodes or free fluid. OSSEOUS STRUCTURES: There are degenerative disc changes L5-S1, L4-L5 disc level with mild posterior spondylosis. No aggressive lytic or sclerotic process seen. CT/CT abdomen pelvis w con IMPRESSION: 2 cystic lesions along the tail of pancreas. A small lesion extending along the axial plane of the pancreas and second lesion perpendicular to the pancreas extending superiorly adjacent to the spleen. There is metastatic hypodense liver lesions similar previous study. Small periportal and peripancreatic lymph nodes. Fleischner guidelines were followed.
[2021-12-28 17:45] VITALS: BP 110/40; PULSE 87; RESP 18; TEMP 37.2; O2SAT 97; BMI 28.0
[2021-12-28 19:31] LABS: MANUAL DIFF FLAG NO
[2021-12-28 19:34] LABS: Basophils Absolute Auto 0.1 X10*3/uL (0.0-0.2); Basophils Percent Auto 0.4 % (0-2); Eosinophils Absolute Auto 0.1 X10*3/uL (0.0-0.4); Eosinophils Percent Auto 0.5 % (0-4); Hematocrit 28.9 % (37.0-47.0); Hemoglobin 9.2 g/dl (12.0-16.0); Imm Gran Abs Auto 0.03 X10*3/uL (0.00-0.03); Imm Gran Pct Auto 0.2 % (0.0-0.4); Lymphocytes Absolute Auto 2.1 X10*3/uL (1.2-4.9); Lymphocytes Percent Auto 16.5 % (20-40); Mean Corpuscular HGB Conc 31.8 g/dl (31.0-35.0); Mean Corpuscular Volume 91.2 fL (80.0-98.0); Mean Platelet Volume 11.3 fL (9.4-12.3); Monocytes Absolute Auto 1.4 X10*3/uL (0.1-1.2); Monocytes Percent Auto 10.8 % (2-11); Neutrophils Absolute Auto 9.3 x10*3/uL (2.0-8.3); Neutrophils Percent Auto 71.6 % (45-73); Platelet Count 238 X10*3/uL (160-400); Red Blood Count 3.17 X10*6/uL (4.20-5.50); White Blood Count 12.9 X10*3/uL (4.8-10.8)
--- NOTE | 2021-12-28 19:36 | ED.ABDPAIN ---
HPI - Abdominal Pain General Chief Complaint: Abdominal Pain Stated Complaint: nausea and pain control..cancer Time Seen by Provider: 12/28/21 19:36 Source: patient Mode of arrival: ambulatory Limitations: no limitations History of Present Illness HPI narrative: Patient with nausea and vomiting, has stage 4 cancer and cannot take the pain and is having a biopsy on Sunday MD elicited complaint: abdominal pain Onset (ago): day(s) Pain Consistency: constant Location: RUQ Severity: moderate Quality: stabbing Radiation: RUQ Relieving factors: nothing Associated symptoms: nausea and vomiting Related Data Home Medications Medication Instructions Recorded Confirmed calcium carbonate 200 mg calcium 200 mg PO BID 08/13/20 12/23/21 (500 mg) chewable tablet (Tums) betamethasone valerate 0.1 % 1 appl TOPICAL DAILY PRN 12/23/21 12/23/21 topical cream diclofenac sodium 1 % topical gel 2 g TOPICAL QID PRN 12/23/21 12/23/21 ergocalciferol (vitamin D2) 1,250 1 cap PO QWEEK 12/23/21 12/23/21 mcg (50,000 unit) capsule omeprazole 40 mg capsule,delayed 1 cap PO BID 12/23/21 12/23/21 release Previous Rx's Medication Instructions Recorded lidocaine 5 % topical patch 1 patch TOPICAL DAILY #15 ea 12/30/20 tramadol 50 mg tablet 50 mg PO Q6H PRN #30 tab 12/23/21 ondansetron 4 mg disintegrating 4 mg PO Q6H PRN #30 tab 12/26/21 tablet morphine 15 mg immediate release 15 mg PO Q4H PRN #30 tab 12/27/21 tablet Allergies Allergy/AdvReac Type Severity Reaction Status Date / Time erythromycin base Allergy Intermediate GI DISTRESS Verified 12/23/21 10:36 [Erythromycin Base] Penicillins Allergy Intermediate RASH Verified 12/23/21 10:36 Review of Systems Constitutional: Reports no additional constitutional complaints Eyes: Reports no additional eye complaints Denies dizziness Cardiovascular: Reports no additional cardiovascular complaints Respiratory: Reports as per HPI Gastrointestinal: Reports no additional gastrointestinal complaints Genitourinary: Reports no additional female genitourinary complaints Musculoskeletal: Reports no additional musculoskeletal complaints Skin/Breast: Denies rash Reports system reviewed and no additional complaints, except as documented, Denies dizziness and Denies Sensory deficit (Neuro) Psychiatric: Denies anxiety PMFSH Past Medical History Medical History Acid reflux Epigastric pain Osteoarthritis of left knee Uterine polyp Surgical History History of cholecystectomy Hx of tubal ligation Family History Family History Mother Diabetes Sister Diabetes Leukemia Brother Diabetes Social History Social History Household Members: Spouse Housing: Apartment Are you a primary school childcare attendant to a significant other at home: No Do you presently have visiting nurse or other home services: Yes Alcohol intake: current Alcohol intake frequency: does not drink Patient Tobacco Use Status: Never used Tobacco Advance Directives: No service: No Current occupational status: retired Current occupation: Right Handed Physical Exam ED Vital Signs: Vital Signs - 24 hr 12/28/21 17:45 Temperature 99 F Pulse Rate 87 Respiratory Rate 18 Blood Pressure 110/40 L Pulse Oximetry 97 BMI result Body Mass Index 28.0 Const Other: sallow appearing Nutritional Appearance: average body habitus Orientation/consciousness: oriented to person and patient oriented x3 Limitations: no limitations HENMT Head: Yes normal to inspection Ears: external ears normal General nose exam: Normal external nose present Mouth: Normal oral and palatal mucosa present and oropharynx normal Throat: Yes posterior oropharynx normal Eyes General: appearance normal, both eyes and all related structures Neck Neck: Yes normal visual inspection Chest Chest palpation & inspection: normal inspection of the chest Resp Auscultation: clear to auscultation bilaterally Cardio Jugular venous distension: no JVD Rate: regular rate Rhythm: regular rhythm Heart sounds: S1 normal heart sound present and S2 normal heart sound present GI Inspection: Yes normal to inspection Palpation (GI): Soft to palpation, nontender and No hepatosplenomegaly present Auscultation: normal bowel sounds General: Yes no CVA tenderness Back/Spine/Pelvis Back: no CVA tenderness Skin General skin exam: no rashes or lesions noted Neuro General: oriented to person and patient oriented x3 Cranial nerves: Yes CN's II-XII intact bilaterally Motor exam (neuro): 5/5 motor strength present throughout Sensory Exam: No Sensory deficit (Neuro) Extrem General: Yes normal to inspection Psych Appearance: grossly normal Course Reevaluation(s) Reevaluation #1: patient to be admitted for pain control and vomiting, discussed with oncology and hospitalist Time: 20:39 MDM - Abdominal Pain Lab Data Result diagrams: 12/28/21 19:26 12/28/21 19:26 Labs: Lab Results 12/28/21 12/28/21 Range/Units 19:26 19:26 WBC 12.9 H (4.8-10.8) X10*3/uL RBC 3.17 L (4.20-5.50) X10*6/uL Hgb 9.2 L (12.0-16.0) g/dl Hct 28.9 L (37.0-47.0) % MCV 91.2 (80.0-98.0) fL MCH 29.0 (27.0-33.0) pg MCHC 31.8 (31.0-35.0) g/dl RDW 16.0 (11.0-16.0) % Plt Count 238 (160-400) X10*3/uL MPV 11.3 (9.4-12.3) fL Immature Gran % (Auto) 0.2 (0.0-0.4) % Neut % (Auto) 71.6 (45-73) % Lymph % (Auto) 16.5 L (20-40) % [place] % (Auto) 10.8 (2-11) % Eos % (Auto) 0.5 (0-4) % Baso % (Auto) 0.4 (0-2) % Lymph # (Auto) 2.1 (1.2-4.9) X10*3/uL [place] # (Auto) 1.4 H (0.1-1.2) X10*3/uL Eos # (Auto) 0.1 (0.0-0.4) X10*3/uL Baso # (Auto) 0.1 (0.0-0.2) X10*3/uL Abs Immat Gran (auto) 0.03 (0.00-0.03) X10*3/uL Absolute Neuts (auto) 9.3 H (2.0-8.3) x10*3/uL Absolute Nucleated RBC 0.000 (0.0-0.012) X10*3/uL Nucleated RBC % (auto) 0.0 (0.0-0.2) /100WBC Sodium 138 (135-145) mmol/L Potassium 4.1 (3.3-5.1) mmol/L Chloride 99 (96-108) mmol/L Carbon Dioxide 31 H (22-29) mmol/L Anion Gap 12 (12-20) BUN 13 (9-16) mg/dL Creatinine 0.67 (0.5-1.4) mg/dL Estim Creat Clear Calc 67.6 Estimated GFR > 60 Random Glucose 127 H (60-115) mg/dL Calcium 9.2 (8.4-10.2) mg/dL Total Bilirubin 2.2 H (0.0-1.0) mg/dL AST 93 H (5-31) U/L ALT 108 H (0-31) U/L Alkaline Phosphatase 470 H D (39-117) U/L Total Protein 7.3 (6.5-8.0) g/dL Albumin 3.7 (3.5-5.0) g/dL Lipase 52 (8-78) U/L Discharge Plan Discharge Clinical Impression: 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
--- NOTE | 2021-12-28 19:40 | PC.NURSE ---
in to bedside for primary eval. Pt reports she has hx of liver and pancreatic CA. States she has uncontolled nausea and pain and was sent in by her oncologist.
[2021-12-28] MEDS: 0.9 % Sodium Chloride 1,000 ML 125 ML IVCONT (19:58)
[2021-12-28] MEDS: Pantoprazole Sodium 40 MG/10 ML VIAL IVPUSH (19:58)
[2021-12-28] MEDS: ondansetron HCL 4 MG/2 ML VIAL IVPUSH (19:58)
[2021-12-28] MEDS: HYDROmorphone HCl 1 MG/ML SYRINGE IVPUSH (19:58)
[2021-12-28 20:10] LABS: Alanine Aminotransferase 108 U/L (0-31); Albumin Level 3.7 g/dL (3.5-5.0); Alkaline Phosphatase 470 U/L (39-117); Anion Gap 12 (12-20); Aspartate Amino Transferase 93 U/L (5-31); Bilirubin Total 2.2 mg/dL (0.0-1.0); Blood Urea Nitrogen 13 mg/dL (9-16); Calcium 9.2 mg/dL (8.4-10.2); Carbon Dioxide 31 mmol/L (22-29); Chloride 99 mmol/L (96-108); Creatinine Clr Calc Pharmacy 67.6; Estimated Glomerular Filt Rate > 60; Glucose Random 127 mg/dL (60-115); Lipase 52 U/L (8-78); Potassium 4.1 mmol/L (3.3-5.1); Sodium 138 mmol/L (135-145); Total Protein 7.3 g/dL (6.5-8.0)
[2021-12-28 21:14] LABS: COVID-19 Test Negative (Negative); IDNOW Serial# 16C4AD1C
[2021-12-28] MEDS: iohexoL 350 MG/ML 100 ML INFUS..BTL IV (21:31)
--- NOTE | 2021-12-28 21:52 | PHA.MEDREC ---
med rec complete, no issues Pharmacy Consult ? Medication Reconciliation Pharmacy has completed the medication reconciliation.
--- NOTE | 2021-12-28 23:40 | PM.IMHP ---
History of Present Illness Date of Service: 12/28/21 Chief Complaint: Abdominal pain 66-year-old female with a past medical history of gastritis, GERD, osteoarthritis, recent diagnosis of pancreatic lesion suspected stage IV cancer; due for biopsy on Sunday; presented to the hospital today with a chief complaint of abdominal pain. Patient reports that about few weeks ago she had right upper quadrant ultrasound done since then she has been having abdominal pain; worsens with deep inspiration; Patient also mentions she has nausea and vomiting attributes to her gastritis/acid reflux; has decreased oral intake. Denies any chest pain or palpitations. Reports abdominal bloating. Denies any diarrhea. Denies any fever chills cough. Patient reported that she went to her oncologist today mentioned about the continued abdominal pain and not improving with morphine. Also reports morphine is giving her nausea vomiting and lightheadedness. Her oncology suggested to go to the hospital for further evaluation. Patient denies any urinary symptoms. Review of all other systems is negative except mentioned above ER course: Per ER team patient noted to have right upper quadrant tenderness; CT scan showed no new changes. Given pain medication. Admitted for further management. [facility] Medical History Acid reflux Epigastric pain Osteoarthritis of left knee Uterine polyp Family History Mother Diabetes Sister Diabetes Leukemia Brother Diabetes Surgical History History of cholecystectomy Hx of tubal ligation Social History Household Members: Spouse Housing: Apartment Are you a primary dialysis patient care technician to a significant other at home: No Do you presently have visiting nurse or other home services: Yes Alcohol intake: current Alcohol intake frequency: does not drink Patient Tobacco Use Status: Never used Tobacco Advance Directives: No service: No Current occupational status: retired Current occupation: Right Handed Meds Allergies Allergy/AdvReac Type Severity Reaction Status Date / Time erythromycin base Allergy Intermediate GI DISTRESS Verified 12/23/21 10:36 [Erythromycin Base] Penicillins Allergy Intermediate RASH Verified 12/23/21 10:36 Active Medications: Current Medications Acetaminophen (Acetaminophen 325 Mg Tablet) 650 mg PO Q6H PRN PRN Reason: Pain, Mild (Pain Scale 1-3) Benzonatate (Benzonatate 100 Mg Capsule) 100 mg PO TID PRN PRN Reason: Cough Enoxaparin Sodium (Enoxaparin Sodium 40 Mg/0.4 Ml Syringe) 40 mg SUBCUT Q24H [facility] Sodium Chloride (Ns) 1,000 mls @ 125 mls/hr IVCONT .Q8H [facility] Last Admin: 12/28/21 19:58 Dose: 125 mls/hr Documented by: Dextrose/Sodium Chloride (D51/2ns) 1,000 mls @ 50 mls/hr IVCONT .Q20H [facility] Melatonin (Melatonin 3 Mg Tablet) 6 mg PO BEDTIME PRN PRN Reason: Insomnia Senna (Sennosides 8.6 Mg Tablet) 17.2 mg PO BEDTIME PRN PRN Reason: Constipation Sodium Chloride (0.9 % Sodium Chloride Flush 3 Ml Syringe) 3 ml IVFLUSH QSHIFT [facility] Home Medications Medication Instructions Recorded Confirmed Last Taken Type betamethasone valerate 0.1 % 1 appl TOPICAL DAILY PRN 12/23/21 12/28/21 Unknown History topical cream ergocalciferol (vitamin D2) 1,250 1 cap PO QWEEK 12/23/21 12/28/21 Unknown History mcg (50,000 unit) capsule omeprazole 40 mg capsule,delayed 1 cap PO DAILY 12/23/21 12/28/21 Unknown History release Physical Exam Vital Signs and Narrative: Vital Signs: Last Vital Signs Temp 99 F 12/28/21 17:45 Pulse 87 12/28/21 17:45 Resp 18 12/28/21 17:45 BP 110/40 L 12/28/21 17:45 Pulse Ox 97 12/28/21 17:45 BMI result Body Mass Index 28.0 Gen: Appears be in no acute distress HEENT: NCAT, Moist mucosa. Pulmonary: Vesicular breath sounds, fair air entry CVS: Normal S1-S2 Abdomen: BS+, Soft, tender in the right upper quadrant; appears musculoskeletal. Extremities: Warm well perfused Neuro: Alert and awake. Results Labs CBC and Chem 7: 12/28/21 19:26 12/28/21 19:26 Labs: Laboratory Results - last 24 hr 12/28/21 12/28/21 12/28/21 19:26 19:26 20:37 MCV 91.2 MCH 29.0 MCHC 31.8 RDW 16.0 Plt Count 238 MPV 11.3 Immature Gran % (Auto) 0.2 Neut % (Auto) 71.6 Lymph % (Auto) 16.5 L [place] % (Auto) 10.8 Eos % (Auto) 0.5 Baso % (Auto) 0.4 Lymph # (Auto) 2.1 [place] # (Auto) 1.4 H Eos # (Auto) 0.1 Baso # (Auto) 0.1 Abs Immat Gran (auto) 0.03 Absolute Neuts (auto) 9.3 H Absolute Nucleated RBC 0.000 Nucleated RBC % (auto) 0.0 Anion Gap 12 Estim Creat Clear Calc 67.6 Estimated GFR > 60 Random Glucose 127 H Calcium 9.2 Total Bilirubin 2.2 H AST 93 H ALT 108 H Alkaline Phosphatase 470 H D Total Protein 7.3 Albumin 3.7 Lipase 52 COVID-19 ([facility]) Negative COVID-19 Clin Com See Note Imaging Radiologist's Impressions: Impressions Abdomen/Pelvis CT 12/28/21 21:37 IMPRESSION: 2 cystic lesions along the tail of pancreas. A small lesion extending along the axial plane of the pancreas and second lesion perpendicular to the pancreas extending superiorly adjacent to the spleen. There is metastatic hypodense liver lesions similar previous study. Small periportal and peripancreatic lymph nodes. Fleischner guidelines were followed. 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 Right upper quadrant abdominal pain: Appears musculoskeletal. Pain control. Pancreatic lesion/metastatic liver lesions: Suspected stage IV pancreatic cancer. Patient due for biopsy on Sunday. Follows with Dr. Masterson from Oncology. History of gastritis/GERD: IV PPI. Advanced diet as tolerated. DVT prophylaxis: Lovenox Code status: Full code Quality Stroke Does the patient have a stroke diagnosis?: No VTE Prior VTE?: No VTE Risk Level:: Medical - moderate - high VTE Device Contraindication: Treatment Not Indicated VTE Drug Contraindication: N/A - Med Ordered
[2021-12-29 00:14] LABS: Appearance Urine CLEAR; Color Urine YELLOW; Glucose Urine UA NEG (NEG); Leukocyte Esterase Urine NEG (NEG); Nitrite Urine NEG (NEG); PH 5.5 (5.0-8.0); Specific Gravity - Urine >= 1.030 (1.005-1.025); Urine Blood NEG (NEG); Urine Ketones 15 MG/DL (NEG); Urine Protein NEG (NEG-TRACE)
[2021-12-29] MEDS: Dextrose 5 % and 0.45 % NaCl 1,000 ML 50 ML IVCONT ×2 (00:56→20:08)
[2021-12-29] MEDS: Enoxaparin Sodium 40 MG/0.4 ML SYRINGE SUBCUT (01:00)
[2021-12-29] MEDS: 0.9 % Sodium Chloride Flush 3 ML SYRINGE IVFLUSH (01:01)
[2021-12-29 01:06] VITALS: BP 134/80; PULSE 78; RESP 18; TEMP 36.6; O2SAT 97
--- NOTE | 2021-12-29 01:18 | PC.NURSE ---
Assumed care of pt Pt moved from stretcher to hospital bed. Pt c/o nausea after the move. No vomiting noted Pt ambulated to the bathroom, standby assist. Gait even and steady. Pt back to hospital bed. NAD Will continue to monitor
[2021-12-29] MEDS: HYDROmorphone HCl 1 MG/ML SYRINGE 0.5 MG IVPUSH ×2 (03:19→20:08)
[2021-12-29 04:26] VITALS: BP 94/45; PULSE 69; RESP 18; TEMP 36.6; O2SAT 97
[2021-12-29] MEDS: ondansetron HCL 4 MG/2 ML VIAL IVPUSH ×2 (05:05→20:08)
[2021-12-29] MEDS: Pantoprazole Sodium 40 MG/10 ML VIAL IVPUSH (05:56)
[2021-12-29 06:36] LABS: MANUAL DIFF FLAG NO
[2021-12-29 06:49] LABS: Basophils Percent Auto 0.3 % (0-2); Eosinophils Percent Auto 0.3 % (0-4); Hematocrit 26.9 % (37.0-47.0); Hemoglobin 8.6 g/dl (12.0-16.0); Imm Gran Abs Auto 0.05 X10*3/uL (0.00-0.03); Imm Gran Pct Auto 0.5 % (0.0-0.4); Lymphocytes Absolute Auto 1.4 X10*3/uL (1.2-4.9); Lymphocytes Percent Auto 12.5 % (20-40); Mean Corpuscular Hemoglobin 29.5 pg (27.0-33.0); Mean Corpuscular Volume 92.1 fL (80.0-98.0); Mean Platelet Volume 11.8 fL (9.4-12.3); Monocytes Absolute Auto 1.3 X10*3/uL (0.1-1.2); Monocytes Percent Auto 11.7 % (2-11); Neutrophils Absolute Auto 8.1 x10*3/uL (2.0-8.3); Neutrophils Percent Auto 74.7 % (45-73); Platelet Count 207 X10*3/uL (160-400); Red Blood Count 2.92 X10*6/uL (4.20-5.50); Red Cell Distribution Width 16.2 % (11.0-16.0); White Blood Count 10.8 X10*3/uL (4.8-10.8)
[2021-12-29 07:01] LABS: Anion Gap 12 (12-20); Blood Urea Nitrogen 9 mg/dL (9-16); Calcium 8.7 mg/dL (8.4-10.2); Carbon Dioxide 30 mmol/L (22-29); Chloride 101 mmol/L (96-108); Creatinine Clr Calc Pharmacy 88.8; Estimated Glomerular Filt Rate > 60; Glucose Random 116 mg/dL (60-115); Potassium 3.7 mmol/L (3.3-5.1); Sodium 139 mmol/L (135-145)
[2021-12-29 08:21] VITALS: BP 102/44; PULSE 66; RESP 14; O2SAT 98
--- NOTE | 2021-12-29 12:43 | HO.PM.IMPN ---
Subjective Subjective Date of Service: 12/29/21 Interval History: f/u on abdominal pain, pancreatic mass, liver masses, concerning for metastatic spread Review of Systems abd pain, n/v Physical Exam Vital Signs: Vital Signs: Last Vital Signs Temp 97.8 F 12/29/21 04:26 Pulse 66 12/29/21 08:21 Resp 14 12/29/21 08:21 BP 102/44 L 12/29/21 08:21 Pulse Ox 98 12/29/21 08:21 BMI result Body Mass Index 28.0 Const: Other: General: AO X 3, no acute distress Resp: CTA bilateral CVS: S1,S2,RRR GI: +BS, NT, no distention Skin: No rash Neuro: motor grossly intact Psych: appropriate affect Objective Data Active Medications Acetaminophen (Acetaminophen 325 Mg Tablet) 650 mg PO Q6H PRN PRN Reason: Pain, Mild (Pain Scale 1-3) Benzonatate (Benzonatate 100 Mg Capsule) 100 mg PO TID PRN PRN Reason: Cough Ergocalciferol (Ergocalciferol (Vitamin D2) 1,250 Mcg Capsule) 1,250 mcg PO Reich@1000 TIFFANY Hydromorphone HCl (Hydromorphone Hcl 1 Mg/Ml Syringe) 0.5 mg IVPUSH Q4H PRN; Protocol PRN Reason: Pain, Severe (Pain Scale 7-10) Last Admin: 12/29/21 03:19 Dose: 0.5 mg Documented by: JAMEY Sodium Chloride (Ns) 1,000 mls @ 125 mls/hr IVCONT .Q8H [facility] Last Admin: 12/29/21 04:53 Dose: Not Given Documented by: JAMEY Non-Admin Reason: Duplicate Order Dextrose/Sodium Chloride (D51/2ns) 1,000 mls @ 50 mls/hr IVCONT .Q20H [facility] Last Admin: 12/29/21 00:56 Dose: 50 mls/hr Documented by: JAMEY Melatonin (Melatonin 3 Mg Tablet) 6 mg PO BEDTIME PRN PRN Reason: Insomnia Ondansetron HCl (Ondansetron Hcl 4 Mg/2 Ml Vial) 4 mg IVPUSH Q8H PRN PRN Reason: Nausea and Vomiting Last Admin: 12/29/21 05:05 Dose: 4 mg Documented by: JAMEY Pantoprazole Sodium (Pantoprazole Sodium 40 Mg/10 Ml Vial) 40 mg IVPUSH DAILY@0630 [facility] Last Admin: 12/29/21 05:56 Dose: 40 mg Documented by: JAMEY Senna (Sennosides 8.6 Mg Tablet) 17.2 mg PO BEDTIME PRN PRN Reason: Constipation Sodium Chloride (0.9 % Sodium Chloride Flush 3 Ml Syringe) 3 ml IVFLUSH QSHIFT [facility] Last Admin: 12/29/21 08:41 Dose: Not Given Documented by: TARIQ Non-Admin Reason: IV Running Labs CBC & Chem 7: 12/29/21 06:28 12/29/21 06:28 Labs: Laboratory Results - last 24 hr 12/28/21 12/28/21 12/28/21 19:26 19:26 20:37 MCV 91.2 MCH 29.0 MCHC 31.8 RDW 16.0 Plt Count 238 MPV 11.3 Immature Gran % (Auto) 0.2 Neut % (Auto) 71.6 Lymph % (Auto) 16.5 L [place] % (Auto) 10.8 Eos % (Auto) 0.5 Baso % (Auto) 0.4 Lymph # (Auto) 2.1 [place] # (Auto) 1.4 H Eos # (Auto) 0.1 Baso # (Auto) 0.1 Abs Immat Gran (auto) 0.03 Absolute Neuts (auto) 9.3 H Absolute Nucleated RBC 0.000 Nucleated RBC % (auto) 0.0 Anion Gap 12 Estim Creat Clear Calc 67.6 Estimated GFR > 60 Random Glucose 127 H Calcium 9.2 Total Bilirubin 2.2 H AST 93 H ALT 108 H Alkaline Phosphatase 470 H D Total Protein 7.3 Albumin 3.7 Lipase 52 Urine Color Urine Appearance Urine pH Ur Specific [place] Urine Protein Urine Glucose (UA) Urine Ketones Urine Blood Urine Nitrite Ur Leukocyte Esterase COVID-19 (VERNA) Negative COVID-19 Clin Com See Note 12/28/21 12/29/21 12/29/21 23:54 06:28 06:28 MCV 92.1 MCH 29.5 MCHC 32.0 RDW 16.2 H Plt Count 207 MPV 11.8 Immature Gran % (Auto) 0.5 H Neut % (Auto) 74.7 H Lymph % (Auto) 12.5 L [place] % (Auto) 11.7 H Eos % (Auto) 0.3 Baso % (Auto) 0.3 Lymph # (Auto) 1.4 [place] # (Auto) 1.3 H Eos # (Auto) 0.0 Baso # (Auto) 0.0 Abs Immat Gran (auto) 0.05 H Absolute Neuts (auto) 8.1 Absolute Nucleated RBC 0.000 Nucleated RBC % (auto) 0.0 Anion Gap 12 Estim Creat Clear Calc 88.8 Estimated GFR > 60 Random Glucose 116 H Calcium 8.7 Total Bilirubin AST ALT Alkaline Phosphatase Total Protein Albumin Lipase Urine Color YELLOW Urine Appearance CLEAR Urine pH 5.5 Ur Specific [place] >= 1.030 H Urine Protein NEG Urine Glucose (UA) NEG Urine Ketones 15 Urine Blood NEG Urine Nitrite NEG Ur Leukocyte Esterase NEG COVID-19 (VER[facility]) COVID-19 Clin Com Assessment and Plan (1) Abdominal pain: Status: Acute (2) 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 Intractable abdominal pain related to pancreatic mass, and probable liver mets. IV Dilaudid for pain Pancreatic lesion/metastatic liver lesions:? Suspected stage IV pancreatic cancer.? Patient due for biopsy on tomorrow.? Follows with Dr. Masterson from Oncology. History of gastritis/GERD: IV PPI.? Advanced diet as tolerated. DVT prophylaxis:? Lovenox Inpatient due to intractable pain requiring IV narcotics, Quality Stroke Does the patient have a stroke diagnosis?: No VTE Prior VTE?: No VTE Risk Level:: Medical - moderate - high VTE Device Contraindication: Treatment Not Indicated VTE Drug Contraindication: N/A - Med Ordered
[2021-12-29 13:41] LABS: INTERNATIONAL NORM RATIO 1.3 (0.9-1.1); Prothrombin Time 15.3 SEC (9.9-13.0)
--- NOTE | 2021-12-29 15:00 | P.PNHO_ITS ---
Medical Summary - Medical Summary Date of Service: 12/29/21 Chief complaint: Abdominal pain Interval History Interval history: patient is feeling better since admission. She is receiving IV pain medications. Although she is nauseous she has not thrown up and she was able to eat a small meal today for lunch. Normal complaints today. Review of Systems - Constitutional Reports as per HPI - Neurologic Reports no additional neurologic complaints, Denies dizziness, Denies sensory deficit [facility] Medical History: Medical History (Last Reviewed 12/28/21 @ 19:38 by Genaro Gonzalez MD) Acid reflux Epigastric pain Osteoarthritis of left knee Uterine polyp Family History: Family History (Last Reviewed 12/28/21 @ 19:39 by Genaro Gonzalez MD) Mother Diabetes Sister Diabetes Leukemia Brother Diabetes Surgical History: Surgical History (Last Reviewed 12/28/21 @ 19:38 by Genaro Gonzalez MD) History of cholecystectomy Hx of tubal ligation Social History: Social History (Last Reviewed 12/28/21 @ 19:39 by Genaro Gonzalez MD) Living Situation History: Household Members: Spouse Housing: Apartment Are you a primary rn home care to a significant other at home: No Do you presently have visiting nurse or other home services: Yes Tobacco History: Patient Tobacco Use Status: Never used Tobacco Advance Directives: Advance Directives: No Advance Directives Information Provided: Advance Directives Information Provided comment: declined Occupation Assessmet: service: No Current occupational status: retired Current occupation: Right Handed Oncology Screenings - ECOG Performance Status ECOG Performance Status: 3 Home Medications and Allergies Current Medications: Current Medications Acetaminophen (Acetaminophen 325 Mg Tablet) 650 mg PO Q6H PRN PRN Reason: Pain, Mild (Pain Scale 1-3) Benzonatate (Benzonatate 100 Mg Capsule) 100 mg PO TID PRN PRN Reason: Cough Ergocalciferol (Ergocalciferol (Vitamin D2) 1,250 Mcg Capsule) 1,250 mcg PO Reich@1000 TIFFANY Hydromorphone HCl (Hydromorphone Hcl 1 Mg/Ml Syringe) 0.5 mg IVPUSH Q4H PRN; Protocol PRN Reason: Pain, Severe (Pain Scale 7-10) Last Admin: 12/29/21 03:19 Dose: 0.5 mg Documented by: Sodium Chloride (Ns) 1,000 mls @ 125 mls/hr IVCONT .Q8H [facility] Last Admin: 12/29/21 04:53 Dose: Not Given Documented by: Dextrose/Sodium Chloride (D51/2ns) 1,000 mls @ 50 mls/hr IVCONT .Q20H [facility] Last Admin: 12/29/21 00:56 Dose: 50 mls/hr Documented by: Melatonin (Melatonin 3 Mg Tablet) 6 mg PO BEDTIME PRN PRN Reason: Insomnia Ondansetron HCl (Ondansetron Hcl 4 Mg/2 Ml Vial) 4 mg IVPUSH Q8H PRN PRN Reason: Nausea and Vomiting Last Admin: 12/29/21 05:05 Dose: 4 mg Documented by: Pantoprazole Sodium (Pantoprazole Sodium 40 Mg/10 Ml Vial) 40 mg IVPUSH DAILY@0630 [facility] Last Admin: 12/29/21 05:56 Dose: 40 mg Documented by: Senna (Sennosides 8.6 Mg Tablet) 17.2 mg PO BEDTIME PRN PRN Reason: Constipation Sodium Chloride (0.9 % Sodium Chloride Flush 3 Ml Syringe) 3 ml IVFLUSH QSHIFT [facility] Last Admin: 12/29/21 08:41 Dose: Not Given Documented by: Home Medications Medication Instructions Recorded Confirmed Type betamethasone valerate 0.1 % 1 appl TOPICAL DAILY PRN 12/23/21 12/28/21 History topical cream ergocalciferol (vitamin D2) 1,250 1 cap PO QWEEK 12/23/21 12/28/21 History mcg (50,000 unit) capsule omeprazole 40 mg capsule,delayed 1 cap PO DAILY 12/23/21 12/28/21 History release Allergies Allergy/AdvReac Type Severity Reaction Status Date / Time erythromycin base Allergy Intermediate GI DISTRESS Verified 12/23/21 10:36 [Erythromycin Base] Penicillins Allergy Intermediate RASH Verified 12/23/21 10:36 Exam Vital signs: Vital Signs Temp 97.8 F 12/29/21 04:26 Pulse 66 12/29/21 08:21 Resp 14 12/29/21 08:21 BP 102/44 L 12/29/21 08:21 Pulse Ox 98 12/29/21 08:21 Intake & Output 12/28/21 12/29/21 12/29/21 18:59 06:59 18:59 Intake Total 754.167 / 754.167 Balance 754.167 / 754.167 Intake: Intake, IV Amount 754.167 / 754.167 0.9 % Sodium Chloride 1,000 ml 754.167 / 754.167 @ 125 mls/hr IVCONT .Q8H [facility] Rx #:[id number] Other: NPO Yes Weight 65 kg Weight 65 kg BMI result Body Mass Index 28.0 - Constitutional Present: no acute distress - Routine HEENT Exam Head: Present: normal inspection Eye: Present: scleral icterus - Routine Neck Exam Present: normal inspection - Routine Respiratory Exam Present: CTAB - Routine Cardiovascular Exam Cardiovascular: Present: S1, S2 - Routine Abdominal Exam Present: mass, soft, tenderness. Absent: rigid Data - Labs CBC & Chem 7: 12/29/21 06:28 12/29/21 06:28 Labs: 12/28/21 19:26 Complete Blood Count Auto Diff Stat Comprehensive Met. Panel Stat Lipase Stat 12/28/21 19:40 HYDROmorphone HCl [Dilaudid] 1 mg IVPUSH ONCE ONE Pantoprazole Sodium [Protonix] 40 mg IVPUSH ONCE ONE ondansetron HCL [Zofran] 4 mg IVPUSH ONCE ONE 12/28/21 20:37 CT abdomen pelvis w con Stat COVID-19 ID NOW (Fernandez) Stat 12/28/21 21:30 iohexoL 350 MG/ML [Omnipaque 350 MG/ML] 100 ml IV ONCE ONE 12/28/21 23:38 NPO Diet 12/28/21 23:45 Enoxaparin Sodium [Lovenox] 40 mg SUBCUT Q24H 12/28/21 23:54 UA CC w/rflx Micro + Cult Stat 12/29/21 06:28 Basic Metabolic Panel AM Complete Blood Count Auto Diff AM 12/29/21 13:19 Prothrombin Time INR Routine Laboratory Last Values WBC 10.8 X10*3/uL (4.8-10.8) 12/29/21 06:28 RBC 2.92 X10*6/uL (4.20-5.50) L 12/29/21 06:28 Hgb 8.6 g/dl (12.0-16.0) L 12/29/21 06:28 Hct 26.9 % (37.0-47.0) L 12/29/21 06:28 MCV 92.1 fL (80.0-98.0) 12/29/21 06:28 MCH 29.5 pg (27.0-33.0) 12/29/21 06:28 MCHC 32.0 g/dl (31.0-35.0) 12/29/21 06:28 RDW 16.2 % (11.0-16.0) H 12/29/21 06:28 Plt Count 207 X10*3/uL (160-400) 12/29/21 06:28 MPV 11.8 fL (9.4-12.3) 12/29/21 06:28 Immature Gran % (Auto) 0.5 % (0.0-0.4) H 12/29/21 06:28 Neut % (Auto) 74.7 % (45-73) H 12/29/21 06:28 Lymph % (Auto) 12.5 % (20-40) L 12/29/21 06:28 [place] % (Auto) 11.7 % (2-11) H 12/29/21 06:28 Eos % (Auto) 0.3 % (0-4) 12/29/21 06:28 Baso % (Auto) 0.3 % (0-2) 12/29/21 06:28 Lymph # (Auto) 1.4 X10*3/uL (1.2-4.9) 12/29/21 06:28 [place] # (Auto) 1.3 X10*3/uL (0.1-1.2) H 12/29/21 06:28 Eos # (Auto) 0.0 X10*3/uL (0.0-0.4) 12/29/21 06:28 Baso # (Auto) 0.0 X10*3/uL (0.0-0.2) 12/29/21 06:28 Abs Immat Gran (auto) 0.05 X10*3/uL (0.00-0.03) H 12/29/21 06:28 Absolute Neuts (auto) 8.1 x10*3/uL (2.0-8.3) 12/29/21 06:28 Absolute Nucleated RBC 0.000 X10*3/uL (0.0-0.012) 12/29/21 06:28 Nucleated RBC % (auto) 0.0 /100WBC (0.0-0.2) 12/29/21 06:28 PT 15.3 SEC (9.9-13.0) H 12/29/21 13:19 INR 1.3 (0.9-1.1) H 12/29/21 13:19 Sodium 139 mmol/L (135-145) 12/29/21 06:28 Potassium 3.7 mmol/L (3.3-5.1) 12/29/21 06:28 Chloride 101 mmol/L (96-108) 12/29/21 06:28 Carbon Dioxide 30 mmol/L (22-29) H 12/29/21 06:28 Anion Gap 12 (12-20) 12/29/21 06:28 BUN 9 mg/dL (9-16) 12/29/21 06:28 Creatinine 0.51 mg/dL (0.5-1.4) 12/29/21 06:28 Estim Creat Clear Calc 88.8 12/29/21 06:28 Estimated GFR > 60 12/29/21 06:28 Random Glucose 116 mg/dL (60-115) H 12/29/21 06:28 Calcium 8.7 mg/dL (8.4-10.2) 12/29/21 06:28 Total Bilirubin 2.2 mg/dL (0.0-1.0) H 12/28/21 19:26 AST 93 U/L (5-31) H 12/28/21 19:26 ALT 108 U/L (0-31) H 12/28/21 19:26 Alkaline Phosphatase 470 U/L (39-117) H D 12/28/21 19:26 Total Protein 7.3 g/dL (6.5-8.0) 12/28/21 19:26 Albumin 3.7 g/dL (3.5-5.0) 12/28/21 19:26 Lipase 52 U/L (8-78) 12/28/21 19:26 Urine Color YELLOW 12/28/21 23:54 Urine Appearance CLEAR 12/28/21 23:54 Urine pH 5.5 (5.0-8.0) 12/28/21 23:54 Ur Specific [place] >= 1.030 (1.005-1.025) H 12/28/21 23:54 Urine Protein NEG MG/DL (NEG-TRACE) 12/28/21 23:54 Urine Glucose (UA) NEG MG/DL (NEG) 12/28/21 23:54 Urine Ketones 15 MG/DL (NEG) 12/28/21 23:54 Urine Blood NEG (NEG) 12/28/21 23:54 Urine Nitrite NEG (NEG) 12/28/21 23:54 Ur Leukocyte Esterase NEG (NEG) 12/28/21 23:54 COVID-19 (VERNA) Negative (Negative) 12/28/21 20:37 COVID-19 Clin Com See Note 12/28/21 20:37 - Imaging Radiologist's impression: ITS Impressions Abdomen/Pelvis CT 12/28/21 21:37 IMPRESSION: 2 cystic lesions along the tail of pancreas. A small lesion extending along the axial plane of the pancreas and second lesion perpendicular to the pancreas extending superiorly adjacent to the spleen. There is metastatic hypodense liver lesions similar previous study. Small periportal and peripancreatic lymph nodes. Fleischner guidelines were followed. 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 This is a 66-year-old woman with probable metastatic pancreatic cancer. She is admitted for pain control. She is receiving IV narcotics, antiemetics, hydration and PPI therapy which is helping her symptoms. She is scheduled for b iopsy of liver mass tomorrow by intervention Radiology. She can be transitioned to oral medications as her symptoms improved. Appreciate hospitalist input. - Time Spent With Patient Time Spent with Patient (in minutes): 10
--- NOTE | 2021-12-29 15:29 | MHC.CM.PN ---
PT REPORTS SHE LIVES WITH HER AND IS INDEPENDENT WITH CARE PT REPORTS SHE ONLY USES A TOILET RISER FOR DME AND A NURSE FROM HER INSURANCE COMPANY VISITS HER ANNUALLY PT REPORTS HER PCP IS TAYLOR ABRAHAM AT [facility] FOR PRIMARY CARE PT HAS A HCP ON FILE PT REPORTS SHE IS VACCINATED AGAINST COVID-19 IMM DELIVERED CURRENT DC PLAN IS HOME WITH NO SERVICES FAMILY TO TRANSPORT
[2021-12-29 16:00] VITALS: BP 105/43; PULSE 82; RESP 16; TEMP 36.9; O2SAT 98
--- NOTE | 2021-12-29 16:04 | PC.NURSE ---
nf fluids are paused, pt has d5 0.[address] wilson aware
[2021-12-29] MEDS: Melatonin 3 MG TABLET 6 MG PO (20:08)
[2021-12-29 23:33] VITALS: BP 117/57; PULSE 67; RESP 16; TEMP 36.7; O2SAT 97
[2021-12-30] VITALS (8 sets, daily range): BP systolic 105–120; BP diastolic 50–66; PULSE 70–76; RESP 16–18; TEMP 36.9–37.4; O2SAT 94–97
[2021-12-30] MEDS: HYDROmorphone HCl 1 MG/ML SYRINGE 0.5 MG IVPUSH ×5 (00:13→21:05)
[2021-12-30] MEDS: Pantoprazole Sodium 40 MG/10 ML VIAL IVPUSH (05:21)
--- NOTE | 2021-12-30 08:12 | HO.PM.IMPN ---
Subjective Subjective Date of Service: 12/30/21 Interval History: CC:f/u on abdominal pain, pancreatic mass, liver masses, concerning for metastatic spread Interval history: Pain is controlled with present pain med, NPO for Bx Review of Systems abd pain, n/v Physical Exam Vital Signs: Vital Signs: Last Vital Signs Temp 98.1 F 12/29/21 23:33 Pulse 70 12/30/21 07:58 Resp 18 12/30/21 07:58 BP 110/55 L 12/30/21 07:58 Pulse Ox 95 12/30/21 07:58 BMI result Body Mass Index 28.0 Const: Other: General: AO X 3, no acute distress Resp: CTA bilateral CVS: S1,S2,RRR GI: +BS, NT, no distention Skin: No rash Neuro: motor grossly intact Psych: appropriate affect Objective Data Active Medications Acetaminophen (Acetaminophen 325 Mg Tablet) 650 mg PO Q6H PRN PRN Reason: Pain, Mild (Pain Scale 1-3) Benzonatate (Benzonatate 100 Mg Capsule) 100 mg PO TID PRN PRN Reason: Cough Ergocalciferol (Ergocalciferol (Vitamin D2) 1,250 Mcg Capsule) 1,250 mcg PO Reich@1000 TIFFANY Hydromorphone HCl (Hydromorphone Hcl 1 Mg/Ml Syringe) 0.5 mg IVPUSH Q4H PRN; Protocol PRN Reason: Pain, Severe (Pain Scale 7-10) Last Admin: 12/30/21 05:21 Dose: 0.5 mg Documented by: RICHIE Dextrose/Sodium Chloride (D51/2ns) 1,000 mls @ 50 mls/hr IVCONT .Q20H [facility] Last Admin: 12/29/21 20:08 Dose: 50 mls/hr Documented by: RICHIE Melatonin (Melatonin 3 Mg Tablet) 6 mg PO BEDTIME PRN PRN Reason: Insomnia Last Admin: 12/29/21 20:08 Dose: 6 mg Documented by: RICHIE Ondansetron HCl (Ondansetron Hcl 4 Mg/2 Ml Vial) 4 mg IVPUSH Q8H PRN PRN Reason: Nausea and Vomiting Last Admin: 12/29/21 20:08 Dose: 4 mg Documented by: RICHIE Pantoprazole Sodium (Pantoprazole Sodium 40 Mg/10 Ml Vial) 40 mg IVPUSH DAILY@0630 [facility] Last Admin: 12/30/21 05:21 Dose: 40 mg Documented by: RICHIE Senna (Sennosides 8.6 Mg Tablet) 17.2 mg PO BEDTIME PRN PRN Reason: Constipation Sodium Chloride (0.9 % Sodium Chloride Flush 3 Ml Syringe) 3 ml IVFLUSH QSHIFT [facility] Last Admin: 12/30/21 07:58 Dose: Not Given Documented by: COTEMA Non-Admin Reason: IV Running Labs CBC & Chem 7: 12/29/21 06:28 12/29/21 06:28 Labs: Laboratory Results - last 24 hr 12/29/21 13:19 PT 15.3 H INR 1.3 H Assessment and Plan (1) Abdominal pain: Status: Acute (2) 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 Intractable abdominal pain related to pancreatic mass, and probable liver mets. continue pain control with IV Dilaudid Transition to oral pain medications. Pancreatic lesion/metastatic liver lesions:? Suspected stage IV pancreatic cancer.? Patient due for biopsy today.? History of gastritis/GERD: PPI DVT prophylaxis:? Lovenox on hold for Cx Inpatient due to intractable pain requiring IV dilaudid for likely pancreatic cancer.. Quality Stroke Does the patient have a stroke diagnosis?: No VTE Prior VTE?: No VTE Risk Level:: Medical - moderate - high VTE Device Contraindication: Treatment Not Indicated VTE Drug Contraindication: N/A - Med Ordered
[2021-12-30] MEDS: ondansetron HCL 4 MG/2 ML VIAL IVPUSH ×2 (09:58→23:22)
[2021-12-30] MEDS: Lidocaine HCl 1 % MPF 5 ML VIAL SUBCUT (13:51)
--- NOTE | 2021-12-30 13:57 | HO.RADPN ---
RADIOLOGY Narrative Narrative: Liver right lobe biopsy performed using coaxial system. 4 20g core biopsies obtained. No complication.
[2021-12-30] MEDS: 0.9 % Sodium Chloride Flush 3 ML SYRINGE IVFLUSH (17:11)
[2021-12-30] MEDS: Dextrose 5 % and 0.45 % NaCl 1,000 ML 50 ML IVCONT (17:11)
[2021-12-31] VITALS: BP 113/53; PULSE 77; RESP 18; TEMP 37.3; O2SAT 95
[2021-12-31] MEDS: Pantoprazole Sodium 40 MG/10 ML VIAL IVPUSH (05:36)
[2021-12-31] MEDS: HYDROmorphone HCl 1 MG/ML SYRINGE 0.5 MG IVPUSH (05:49)
[2021-12-31 07:54] VITALS: BP 118/56; PULSE 72; RESP 17; TEMP 37.1; O2SAT 95
--- NOTE | 2021-12-31 09:02 | HO.PM.IMPN ---
Subjective Subjective Date of Service: 12/31/21 Interval History: CC:f/u on abdominal pain, pancreatic mass, liver masses, concerning for metastatic spread Interval history: Had Bx yesterday, still with signficant pain and getting IV narcs, Review of Systems abd pain, +nausea, no vomitting Physical Exam Vital Signs: Vital Signs: Last Vital Signs Temp 98.8 F 12/31/21 07:54 Pulse 72 12/31/21 07:54 Resp 17 12/31/21 07:54 BP 118/56 L 12/31/21 07:54 Pulse Ox 95 12/31/21 07:54 BMI result Body Mass Index 28.0 Const: Other: General: AO X 3, no acute distress Resp: CTA bilateral CVS: S1,S2,RRR GI: +BS, NT, no distention Skin: No rash Neuro: motor grossly intact Psych: appropriate affect Objective Data Active Medications Acetaminophen (Acetaminophen 325 Mg Tablet) 650 mg PO Q6H PRN PRN Reason: Pain, Mild (Pain Scale 1-3) Benzonatate (Benzonatate 100 Mg Capsule) 100 mg PO TID PRN PRN Reason: Cough Ergocalciferol (Ergocalciferol (Vitamin D2) 1,250 Mcg Capsule) 1,250 mcg PO Reich@1000 [facility]FFANY Hydromorphone HCl (Hydromorphone Hcl 1 Mg/Ml Syringe) 0.5 mg IVPUSH Q4H PRN; Protocol PRN Reason: Pain, Severe (Pain Scale 7-10) Last Admin: 12/31/21 05:49 Dose: 0.5 mg Documented by: SONY Dextrose/Sodium Chloride (D51/2ns) 1,000 mls @ 50 mls/hr IVCONT .Q20H [facility] Last Admin: 12/30/21 17:11 Dose: 50 mls/hr Documented by: COTEMA Melatonin (Melatonin 3 Mg Tablet) 6 mg PO BEDTIME PRN PRN Reason: Insomnia Last Admin: 12/29/21 20:08 Dose: 6 mg Documented by: RICHIE Ondansetron HCl (Ondansetron Hcl 4 Mg/2 Ml Vial) 4 mg IVPUSH Q8H PRN PRN Reason: Nausea and Vomiting Last Admin: 12/30/21 23:22 Dose: 4 mg Documented by: HO.ODRISM Pantoprazole Sodium (Pantoprazole Sodium 40 Mg/10 Ml Vial) 40 mg IVPUSH DAILY@0630 [facility] Last Admin: 12/31/21 05:36 Dose: 40 mg Documented by: ROBERTRISLiudmila Senna (Sennosides 8.6 Mg Tablet) 17.2 mg PO BEDTIME PRN PRN Reason: Constipation Sodium Chloride (0.9 % Sodium Chloride Flush 3 Ml Syringe) 3 ml IVFLUSH QSHIFT [facility] Last Admin: 12/31/21 08:29 Dose: Not Given Documented by: BUCKY Non-Admin Reason: IV Running Labs CBC & Chem 7: 12/29/21 06:28 12/29/21 06:28 Assessment and Plan (1) 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 Intractable abdominal pain related to pancreatic mass, and probable liver mets. continue pain control with IV Dilaudid Transition to oral pain medications today to make sure she can tolerate at home, oral antiemetics Pancreatic lesion/metastatic liver lesions:? Suspected stage IV pancreatic cancer.? Patient due for biopsy 01/02/22, result peding History of gastritis/GERD: PPI DVT prophylaxis:? Lovenox on hold for Cx Inpatient due to intractable pain requiring IV dilaudid for likely pancreatic cancer.. need to transistion to oral pain medication that she can tolerate and be able to go home Quality Stroke Does the patient have a stroke diagnosis?: No VTE Prior VTE?: No VTE Risk Level:: Medical - moderate - high VTE Device Contraindication: Treatment Not Indicated VTE Drug Contraindication: N/A - Med Ordered
[2021-12-31] MEDS: oxyCODONE HCl Immed Release 5 MG TABLET PO ×3 (11:12→19:47)
[2021-12-31] MEDS: Dextrose 5 % and 0.45 % NaCl 1,000 ML 50 ML IVCONT (11:14)
[2021-12-31 16:00] VITALS: BP 119/58; PULSE 85; RESP 17; TEMP 37.4; O2SAT 95
[2021-12-31] MEDS: Sennosides 8.6 MG TABLET 17.2 MG PO (20:37)
[2021-12-31] MEDS: Famotidine/PF 20 MG/2 ML VIAL IVPUSH (20:37)
[2021-12-31 23:32] VITALS: BP 114/55; PULSE 81; RESP 17; TEMP 36.7; O2SAT 95
[2022-01-01] MEDS: oxyCODONE HCl Immed Release 5 MG TABLET PO ×2 (03:42→09:03)
[2022-01-01] MEDS: Pantoprazole Sodium 40 MG/10 ML VIAL IVPUSH (05:44)
[2022-01-01 07:49] VITALS: BP 106/54; PULSE 79; RESP 18; TEMP 37.1; O2SAT 96
--- NOTE | 2022-01-01 09:37 | PM.DS ---
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 She was managed with pain medication by IV, hydration and ultimately had the biopsy done. She will follow up with Dr. Masterson for treatment options. Will discharge with Oxycodone for pain--seems to work better for her pain compare to morphine, and Zofran for nausea and vomitting. Time Spent with Patient Time attestation: Total time spent providing and/or coordinating discharge services: Discharge coordination time: Greater than 30 minutes Quality: Stroke Does the patient have a stroke diagnosis?: No Quality: Safe Use of Opioids Does Pt have an Active Cancer Diagnosis on the Problem List?: No Physical Exam Vital Signs: Vital Signs: Last Vital Signs Temp 98.5 F 12/30/21 08:13 Pulse 70 12/30/21 07:58 Resp 18 12/30/21 07:58 BP 110/55 L 12/30/21 07:58 Pulse Ox 95 12/30/21 07:58 BMI result Body Mass Index 28.0 DS: Data Data Completed and Pending Labs on day of discharge: Laboratory Results - last 24 hr 12/29/21 13:19 PT 15.3 H INR 1.3 H Discharge Plan Discharge Anticipated Discharge Date/Time: 01/01/22 09:35 Patient Disposition: Home, Self-Care Discharge Diagnosis: Pancreatic Neoplasm Referrals: Jessica Masterson MD [Primary Care Provider] - 1 Week Discharge Medications: New ondansetron 4 mg tablet,disintegrating 4 - 8 mg PO Q8H PRN (Reason: nausea and vomiting) 5 Days Qty: 20 0RF oxycodone 5 mg Tablet 5 mg PO Q4H PRN (Reason: Pain, Severe (Pain Scale 7-10)) Qty: 30 0RF Continued omeprazole 40 mg capsule,delayed release(DR/EC) 1 cap PO DAILY 0RF betamethasone valerate 0.1 % Cream 1 appl TOPICAL DAILY PRN (Reason: Dry Skin) 0RF ergocalciferol (vitamin D2) 1,250 mcg (50,000 unit) capsule 1 cap PO QWEEK 0RF ondansetron 4 mg Tablet,Disintegrating 4 mg PO Q6H PRN (Reason: Nausea) Qty: 30 3RF Discontinued morphine 15 mg Tablet 15 mg PO Q4H PRN (Reason: Pain) Qty: 30 0RF Discharge Orders: Discharge Order (Routine); Ordered 01/01/22 Ordered By: Bubba Sands Diet: advance to usual diet Activity on Discharge: As tolerated Stand Alone Forms: Patient Portal Discharge page Care Plan Goals: Full diagnosis of pancreatic mass and appropirate diagnosis Health Concerns: Pancreatic mass that is fear to be cancer with spread to other organs Plan of Treatment: Take morphine and oxycodone as recommended and follow up, Kay for nausea and follow up with Dr. Masterson in a week for result of biopsy and treatment options Assessment: As above
--- NOTE | 2022-01-01 10:00 | MHC.CM.PN ---
PATIENT LIVES WITH HER OLDEST DAUGHTER/NEW HCP AGENT COPY TO BE UPLOADED INTO [employer] AND PLACED IN CHART. SHE USES NO DME FOR AMBULATION SHE DOES RELY ON HER INHALERS AND NEBULIZER FAMILY IS IN ROOM. POTENTIAL DC FOR TODAY SHE HAS BEEN VACCINATED X 3 WITH [employer] SERIES AND WILL LOOK FOR THE DATES. CASE MANAGEMENT FOLLOWING FOR ANY DC NEEDS. MUSA 01/01 IN CHART
--- NOTE | 2022-01-01 10:03 | MHC.CM.PN ---
PATIENT IS DC HOME - SELF CARE RX FOR PAIN MEDICATION GIVEN SHE IS AWARE THAT HER PHARMACY IS CLOSED TODAY AND SHE WILL NEED TO VISIT ANOTHER
== END 2022-01-01 10:49 | disposition home or self-care (01) | DRG 948 ==
LOC: HO.ED 20:40 → HO.EDOVER 23:42 → HO.S3 12-29 16:11
PROVIDERS: Radiology Diagnostic Radiology; Admitting Provider Hospitalist; Emergency Provider Emergency Medicine; PCP Internal Medicine; Visit Provider Internal Medicine
PROC: 0FB13ZX Excision of Right Lobe Liver, Percutaneous Approach, Diagnostic (ICD-10-PCS; principal; 2021-12-30 13:30)
DX: G89.3 Neoplasm related pain (acute) (chronic) (principal); C25.9 Malignant neoplasm of pancreas, unspecified; C78.7 Secondary malignant neoplasm of liver and intrahepatic bile duct; K21.9 Gastro-esophageal reflux disease without esophagitis; Z20.822 Contact with and (suspected) exposure to COVID-19; Z88.0 Allergy status to penicillin; Z79.891 Long term (current) use of opiate analgesic; Z79.899 Other long term (current) drug therapy
CPT/HCPCS: 36415; 47000; 74177; 76942; 80048; 80053; 81003; 83690; 85025; 85610; 87635; 88307; 88341; 88342; 96361; 96374; 96375; 99152; 99285; J1170; J1650; J2405; Q9967